=== PATIENT | female | born 1985 | race American Indian/Alaskan Native ===

== ENCOUNTER 2018-02-04 15:39 | Inpatient (IN) | payer MEDICAID ==
[2018-02-04 17:52] LABS: ANION GAP 10.2; CHLORIDE,CL 106 mmol/L (101-111); SODIUM,NA 135 mmol/L (135-145)
[2018-02-04] MEDS ORDERED: ceFAZolin 2 GM in Premix Bag 1 BAG IV ONE (18:02)
[2018-02-04] MEDS ORDERED: ePHEDrine 50 MG/ML SDV IVPUSH PRN (18:02)
[2018-02-04] MEDS ORDERED: Acetaminophen/oxyCODONE 325-5 MG Tab PO PRN (18:02)
[2018-02-04] MEDS ORDERED: Methylergonovine 0.2 MG/1 ML Amp IM PRN (18:02)
[2018-02-04] MEDS ORDERED: Carboprost Tromethamine 250 MCG/1 ML Amp IM ONE (18:02)
[2018-02-04] MEDS ORDERED: Acetaminophen 325 MG Tab PO PRN (18:02)
[2018-02-04] MEDS ORDERED: Sodium Chloride 0.9% 10 ML Syringe FLUSH PRN (18:02)
[2018-02-04] MEDS ORDERED: Misoprostol 400 MCG (4 X 100 MCG TAB) RECTAL PRN (18:02)
[2018-02-04] MEDS ORDERED: diphenhydrAMINE 50 MG/ML SDV IVPUSH PRN (18:02)
[2018-02-04] MEDS ORDERED: Naloxone 2 MG/2 ML Syringe IVPUSH PRN (18:02)
[2018-02-04] MEDS ORDERED: Citric Acid/Sodium Citrate Solution 30 ML Cup PO ONE (18:02)
[2018-02-04] MEDS ORDERED: Tranexamic Acid 1,000 MG in Sodium Chloride 0.9% 100 ML IV PRN ×4 (18:02)
[2018-02-04] MEDS ORDERED: Ondansetron 4 MG/2 ML SDV IV PRN (18:02)
[2018-02-04] MEDS ORDERED: Potassium Chloride 20 MEQ in Premix Bag 1 BAG IV ONE (18:14)
[2018-02-04] MEDS ORDERED: Lactated Ringers 1,000 ML IV SCH ×2 (18:15)
[2018-02-04] MEDS ORDERED: Ketorolac 30 MG/ML SDV IVPUSH ONE (18:15)
[2018-02-04] MEDS ORDERED: Oxytocin/Normal Saline 60 UNIT/1,000 ML BAG ONE (18:24)
[2018-02-04] MEDS ORDERED: Measles, Mumps & Rubella Vaccine 0.5 ML SDV SUBCUT ONE (18:45)
[2018-02-04] MEDS ORDERED: Oxytocin 10 Units/1 ML SDV IV PRN (18:49)
[2018-02-04] MEDS ORDERED: Oxytocin/Normal Saline 30 UNIT/500 ML BAG IV SCH (20:30)
--- NOTE | 2018-02-05 01:45 | HP ---
CHIEF COMPLAINT: "I'm having contractions." HISTORY OF PRESENT ILLNESS: Ms. Sharma is a 32-year-old 6, para 5-0-0- 5 female. Last menstrual period 05/21/2017, EDC 02/25/2018, EGA 37 weeks' gestation. She comes in complaining of increasing force and frequency of contractions and edema in her legs. She denies any vaginal bleeding or leakage of fluid. No nausea, vomiting, or diarrhea. No fever, chills. No hematochezia, hematemesis, hematuria. No dysuria, frequency, or urgency with urination. No leg pain, leg edema, back pain, or severe abdominal pain. She is having pain with her contractions though. PAST MEDICAL HISTORY: Positive for hepatitis C and abnormal Pap smears. No history of diabetes, hypertension, heart disease, seizure disorder, thyroid disorder, thromboembolic disease, blood transfusions. SOCIAL HISTORY: The patient smokes a pack of cigarettes a day. She denies any alcohol use or illicit drug use, but she does have a positive drug screen for methamphetamine and oxycodone today. She lives in [place]. She does have her other children. OBSTETRICAL HISTORY: Normal spontaneous vaginal delivery of a viable male in 2010, weighing 3997 g. On 04/07/2012, delivery of a viable male via vacuum-assisted vaginal delivery at term. On 04/16/2013, primary low transverse section of a viable female , weighing 3365 g. On 05/17/2015, delivery of a viable male , weighing 3799 g via repeat section. On 06/17/2016, delivery of a viable male via repeat section, weighing 3657 g at 38 and 4/7 weeks' gestation. PAST SURGICAL HISTORY: section x3, wisdom teeth extraction, and cholecystectomy. FAMILY HISTORY: Positive for diabetes, lung cancer, and heart failure. REVIEW OF SYSTEMS: All pertinent positive and negative review of systems per HPI. All other systems reviewed are negative. Ten point review of systems discussed with the patient. She has no issues other than what is in the HPI. OBJECTIVE: General: Well-developed, well-nourished female, who is disoriented, I am thinking secondary to her methamphetamine use. Vital Signs: Stable. Afebrile. HEENT: Unremarkable. Neck: Supple without adenopathy. No thyromegaly. Lungs: Clear to auscultation. No wheezing, no rhonchi, and no rales noted. Cardiovascular: Regular rate and rhythm without murmurs. Abdomen: Gravid, nontender. Bowel sounds good. No rigidity, rebound tenderness, peritoneal signs noted. Fundal height 37 cm. heart tones 130s to 140s, reactive strip, category 1 strip. Contractions every 2 to 3 minutes. Back: No CVA tenderness. Genitourinary: Cervix is 3+ cm dilated, 70% effaced, -2 station, vertex presentation. Extremities: No edema, erythema, or tenderness noted. ASSESSMENT: 1. A 37-week intrauterine . 2. Early labor. 3. Previous section x3. 4. History of hepatitis C antibody positive. 5. History of abnormal Pap smears with low-grade squamous intraepithelial lesion. 6. Rubella nonimmune. PLAN: 1. All questions answered. 2. The risks, benefits, complications, side effects of the procedure were discussed with the patient including injury to the bowel, bladder, ureters, blood vessels, and other organs because of her multiple C-sections. 3. Despite this, she still wants to have the procedure done. [facility] /[id number] JEANIE
[2018-02-05] MEDS: Lactated Ringers 1,000 ML IV SCH ×2 (02:15→10:52)
[2018-02-05] MEDS: Ketorolac 30 MG/ML SDV IVPUSH SCH ×3 (02:15→14:08)
[2018-02-05] MEDS: Ferrous Sulfate 325 MG Tab PO SCH ×3 (03:22→21:53)
[2018-02-05] MEDS: Simethicone 80 MG Tab.Chew PO SCH ×5 (03:23→21:55)
[2018-02-05] MEDS ORDERED: Potassium Chloride 100 ML ONE (03:24)
[2018-02-05] MEDS: Potassium Chloride 10 MEQ Tab.ER PO SCH ×2 (08:25→17:38)
[2018-02-05] MEDS: Prenatal Multivitamin with Calcium/Folic Acid/Iron Tab PO SCH (08:26)
[2018-02-05] MEDS: Docusate Sodium 100 MG Cap PO PRN ×2 (08:26→21:53)
--- NOTE | 2018-02-05 10:05 | PCM.PNPP ---
- General Info Date of Service: 02/05/18 (PPD/POD # 1 S/P Repeat LTC/s) Functional Status: Reports: Pain Controlled, Tolerating Diet - Review of Systems General: Reports: No Symptoms HEENT: Reports: No Symptoms Pulmonary: Reports: No Symptoms Cardiovascular: Reports: No Symptoms Gastrointestinal: Reports: No Symptoms Genitourinary: Reports: No Symptoms Musculoskeletal: Reports: No Symptoms Skin: Reports: No Symptoms Neurological: Reports: No Symptoms Psychiatric: Reports: No Symptoms - General Info Date of Service: 02/05/18 (POD/PPD # 1 S/P Repeat LTC/S) - Patient Data Vital Signs - Most Recent: Last Vital Signs Temp 97.7 F 02/05/18 08:47 Pulse 51 L 02/05/18 08:47 Resp 18 02/05/18 08:47 BP 121/71 02/05/18 08:47 Pulse Ox 98 02/05/18 08:47 Weight - Most Recent: 163 lb I&O - Last 24 Hours: Intake & Output 02/04/18 02/05/18 02/05/18 22:59 06:59 14:59 Intake Total 300 1600 Output Total 600 266 Balance -300 1334 Lab Results - Last 24 Hours: Laboratory Results - last 24 hr 02/04/18 02/04/18 02/04/18 Range/Units 16:10 16:10 17:20 WBC 9.1 (5.0-10.0) 10^3/uL RBC 3.93 L (4.2-5.4) 10^6/uL Hgb 10.1 L (12.0-16.0) g/dL Hct 31.7 L (37.0-47.0) % MCV 80.7 (80-100) fL MCH 25.7 L (27.0-34.0) pg MCHC 31.9 L (33.0-35.0) g/dL Plt Count 243 (150-450) 10^3/uL Sodium (135-145) mmol/L Potassium (3.6-5.0) mmol/L Chloride (101-111) mmol/L Carbon Dioxide (21.0-31.0) mmol/L Anion Gap BUN (7-18) mg/dL Creatinine (0.6-1.3) mg/dL Est Cr Clr Drug Dosing mL/min Estimated GFR (MDRD) BUN/Creatinine Ratio Glucose (74-105) mg/dL Calcium (8.4-10.2) mg/dl Total Bilirubin (0.2-1.0) mg/dL AST (10-42) IU/L ALT (10-60) IU/L Alkaline Phosphatase (42-121) IU/L Total Protein (6.7-8.2) g/dl Albumin (3.2-5.5) g/dl Globulin Albumin/Globulin Ratio Urine Color Yellow (YELLOW) Urine Appearance Clear (CLEAR) Urine pH 6.5 (5.0-9.0) Ur Specific [place] 1.015 (1.005-1.030) Urine Protein Negative (NEGATIVE) Urine Glucose (UA) Negative (NEGATIVE) Urine Ketones Negative (NEGATIVE) Urine Occult Blood Small H (NEGATIVE) Urine Nitrite Negative (NEGATIVE) Urine Bilirubin Negative (NEGATIVE) Urine Urobilinogen 1.0 (0.2-1.0) mg/dL Ur Leukocyte Esterase Small H (NEGATIVE) Urine RBC 0-5 /HPF Urine WBC 5-10 H (0-5/HPF) /HPF Ur Epithelial Cells Many H /HPF Urine Bacteria Moderate H (0-FEW/HPF) /HPF Urine Opiates Screen Negative (NEGATIVE) Ur Oxycodone Screen Positive H (NEGATIVE) Urine Methadone Screen Negative (NEGATIVE) Ur Barbiturates Screen Negative (NEGATIVE) U Tricyclic Antidepress Negative (NEGATIVE) Ur Phencyclidine Scrn Negative (NEGATIVE) Ur Amphetamine Screen Positive H (NEGATIVE) U Methamphetamines Scrn Positive H (NEGATIVE) Urine MDMA Screen Negative (NEGATIVE) U Benzodiazepines Scrn Negative (NEGATIVE) Urine Cocaine Screen Negative (NEGATIVE) U Marijuana (THC) Screen Negative (NEGATIVE) Blood Type Gel Antibody Screen 02/04/18 02/04/18 02/05/18 Range/Units 17:20 17:20 06:12 WBC 8.6 (5.0-10.0) 10^3/uL RBC 3.55 L (4.2-5.4) 10^6/uL Hgb 9.1 L (12.0-16.0) g/dL Hct 29.2 L (37.0-47.0) % MCV 82.3 (80-100) fL MCH 25.6 L (27.0-34.0) pg MCHC 31.2 L (33.0-35.0) g/dL Plt Count 190 (150-450) 10^3/uL Sodium 135 (135-145) mmol/L Potassium 3.2 L (3.6-5.0) mmol/L Chloride 106 (101-111) mmol/L Carbon Dioxide 22.0 (21.0-31.0) mmol/L Anion Gap 10.2 BUN 7 (7-18) mg/dL Creatinine 0.6 (0.6-1.3) mg/dL Est Cr Clr Drug Dosing 123.37 mL/min Estimated GFR (MDRD) > 60 BUN/Creatinine Ratio 11.66 Glucose 88 (74-105) mg/dL Calcium 8.8 (8.4-10.2) mg/dl Total Bilirubin 0.6 (0.2-1.0) mg/dL AST 17 (10-42) IU/L ALT 11 (10-60) IU/L Alkaline Phosphatase 185 H (42-121) IU/L Total Protein 5.9 L (6.7-8.2) g/dl Albumin 2.6 L (3.2-5.5) g/dl Globulin 3.3 Albumin/Globulin Ratio 0.79 Urine Color (YELLOW) Urine Appearance (CLEAR) Urine pH (5.0-9.0) Ur Specific [place] (1.005-1.030) Urine Protein (NEGATIVE) Urine Glucose (UA) (NEGATIVE) Urine Ketones (NEGATIVE) Urine Occult Blood (NEGATIVE) Urine Nitrite (NEGATIVE) Urine Bilirubin (NEGATIVE) Urine Urobilinogen (0.2-1.0) mg/dL Ur Leukocyte Esterase (NEGATIVE) Urine RBC /HPF Urine WBC (0-5/HPF) /HPF Ur Epithelial Cells /HPF Urine Bacteria (0-FEW/HPF) /HPF Urine Opiates Screen (NEGATIVE) Ur Oxycodone Screen (NEGATIVE) Urine Methadone Screen (NEGATIVE) Ur Barbiturates Screen (NEGATIVE) U Tricyclic Antidepress (NEGATIVE) Ur Phencyclidine Scrn (NEGATIVE) Ur Amphetamine Screen (NEGATIVE) U Methamphetamines Scrn (NEGATIVE) Urine MDMA Screen (NEGATIVE) U Benzodiazepines Scrn (NEGATIVE) Urine Cocaine Screen (NEGATIVE) U Marijuana (THC) Screen (NEGATIVE) Blood Type B POSITIVE Gel Antibody Screen Negative Med Orders - Current: Current Medications Acetaminophen (Tylenol) 650 mg PO Q6H PRN PRN Reason: mild pain or fever Diphenhydramine HCl (Benadryl) 25 mg IVPUSH Q6H PRN PRN Reason: Itching or Nausea Docusate Sodium (Colace) 100 mg PO Q12H PRN PRN Reason: Constipation Last Admin: 02/05/18 08:26 Dose: 100 mg Ephedrine Sulfate (Ephedrine Sulfate) 5 mg IVPUSH SEECOMMENT PRN PRN Reason: Other Ferrous Sulfate (Ferrous Sulfate) 325 mg PO BID [facility] Last Admin: 02/05/18 08:25 Dose: 325 mg Tranexamic Acid 1,000 mg/ (Sodium Chloride) 110 mls @ 660 mls/hr IV ONETIME PRN PRN Reason: Bleeding Tranexamic Acid 1,000 mg/ (Sodium Chloride) 110 mls @ 660 mls/hr IV ONETIME PRN PRN Reason: Bleeding Lactated Ringer's (Ringers, Lactated) 1,000 mls @ 125 mls/hr IV ASDIRECTED [facility] Last Admin: 02/05/18 02:15 Dose: 125 mls/hr Lactated Ringer's (Ringers, Lactated) 1,000 mls @ 500 mls/hr IV .BOLUS [facility] Last Admin: 02/04/18 18:25 Dose: 500 mls/hr Lactated Ringer's (Ringers, Lactated) 1,000 mls @ 125 mls/hr IV ASDIRECTED [facility] Oxytocin/Sodium Chloride (Pitocin In Ns 30 Unit/500 Ml) 30 unit in 500 mls @ 2 mls/hr IV TITRATE [facility]; Protocol Last Titration: 02/05/18 02:13 Dose: Infused Ibuprofen (Motrin) 800 mg PO Q8H PRN PRN Reason: mild pain or fever Ketorolac Tromethamine (Toradol) 15 mg IVPUSH Q6H [facility] Stop: 02/05/18 12:01 Last Admin: 02/05/18 08:28 Dose: 15 mg Methylergonovine Maleate (Methergine) 0.2 mg IM ONETIME PRN PRN Reason: Excessive Vaginal Bleeding Misoprostol (Cytotec) 800 mcg RECTAL ASDIRECTED PRN PRN Reason: Excessive bleeding Naloxone HCl (Narcan) 0.1 mg IVPUSH SEECOMMENT PRN PRN Reason: Respiratory Depression Ondansetron HCl (Zofran) 4 mg IV Q4H PRN PRN Reason: Nausea/Vomiting Oxycodone/Acetaminophen (Percocet 325-5 Mg) 1 tab PO Q4H PRN PRN Reason: Pain (moderate 4-6) Oxycodone/Acetaminophen (Percocet 325-5 Mg) 2 tab PO Q4H PRN PRN Reason: Pain (moderate 4-6) Oxytocin (Pitocin) 0 unit IV ONETIME PRN; Protocol PRN Reason: Potassium Chloride (Klor-Con 10) 20 meq PO BIDMEALS [facility] Last Admin: 02/05/18 08:25 Dose: 20 meq Prenat Multivit/S[employer]/Iron/Folic Ac ( Plus Iron) 1 each PO DAILY [facility] Last Admin: 02/05/18 08:26 Dose: 1 each Simethicone (Simethicone) 160 mg PO QID [facility] Last Admin: 02/05/18 08:25 Dose: 160 mg Sodium Chloride (Saline Flush) 10 ml FLUSH ASDIRECTED PRN PRN Reason: Keep Vein Open Discontinued Medications Carboprost Tromethamine (Hemabate Ds) 250 mcg IM ONETIME ONE Stop: 02/04/18 18:03 Last Admin: 02/05/18 03:23 Dose: Not Given Citric Acid/Sodium Citrate (Bicitra Solution) 30 ml PO ONETIME ONE Stop: 02/04/18 18:03 Last Admin: 02/04/18 18:43 Dose: 30 ml Cefazolin Sodium/Dextrose 2 gm (/ Premix) 50 mls @ 100 mls/hr IV ONETIME ONE Stop: 02/04/18 18:31 Last Admin: 02/04/18 18:55 Dose: 100 mls/hr Potassium Chloride 20 meq/ (Premix) 100 mls @ 50 mls/hr IV ONETIME ONE Stop: 02/04/18 20:13 Last Admin: 02/05/18 03:30 Dose: 50 mls/hr Oxytocin/Sodium Chloride (Pitocin In Ns 30 Unit/500 Ml) Confirm Administered Dose 60 unit in 1,000 mls @ as directed .ROUTE .STK-MED ONE Stop: 02/04/18 18:25 Last Admin: 02/04/18 19:55 Dose: 125 mls/hr Potassium Chloride (Kcl 20 Meq In Water 100 Ml) Confirm Administered Dose 100 mls @ as directed .ROUTE .STK-MED ONE Stop: 02/05/18 03:25 Last Admin: 02/05/18 03:41 Dose: Not Given Ketorolac Tromethamine (Toradol) 30 mg IVPUSH ONETIME ONE Stop: 02/04/18 18:16 Last Admin: 02/05/18 03:22 Dose: Not Given - Interaction Infant Disposition, : Not Applicable Interaction: Other (see below) ( in [place] at [place]) Support Person: Other (see below) - Recovery Exam Fundal Tone: Firm Fundal Level: 2 Fingerbreadths Below Umbilicus Fundal Placement: Midline Lochia Amount: Small Lochia Color: Rubra/Red Perineum Description: Intact, Minimal Bruising/Swelling Episiotomy/Laceration: None Bladder Status: Nonpalpable, Indwelling Catheter in Place Urinary Elimination: Indwelling Catheter - Exam General: Alert, Cooperative, No Acute Distress, Lethargic HEENT: Pupils Equal, Pupils Reactive, EOMI, Mucous Membr. Moist/[place] Neck: Supple Lungs: Clear to Auscultation, Normal Respiratory Effort Cardiovascular: Regular Rate, Regular Rhythm GI/Abdominal Exam: Normal Bowel Sounds, Soft, Non-Tender, No Organomegaly, No Distention Extremities: Normal Inspection, Normal Range of Motion, Non-Tender, Normal Capillary Refill, Pedal Edema Skin: Warm, Dry, Intact Wound/Incisions: Healing Well, Dressing Dry and Intact, No Drainage Neurological: No New Focal Deficit Psy/Mental Status: Alert, Normal Affect, Normal Mood - Problem List Review Problem List Initiated/Reviewed/Updated: Yes - My Orders Last 24 Hours: My Active Orders 02/04/18 16:13 CULTURE GROUP B STREP [RM] Routine 02/04/18 18:02 Acetaminophen [Tylenol] 650 mg PO Q6H PRN Acetaminophen/oxyCODONE [Percocet 325-5 MG] 1 tab PO Q4H PRN Acetaminophen/oxyCODONE [Percocet 325-5 MG] 2 tab PO Q4H PRN Docusate Sodium [Colace] 100 mg PO Q12H PRN Methylergonovine [Methergine] 0.2 mg IM ONETIME PRN Naloxone [Narcan] 0.1 mg IVPUSH SEECOMMENT PRN Ondansetron [Zofran] 4 mg IV Q4H PRN Sodium Chloride 0.9% [Saline Flush] 10 ml FLUSH ASDIRECTED PRN Tranexamic Acid [Cyklokapron] 1,000 mg Sodium Chloride 0.9% [Normal Saline] 100 ml IV ONETIME Tranexamic Acid [Cyklokapron] 1,000 mg Sodium Chloride 0.9% [Normal Saline] 100 ml IV ONETIME diphenhydrAMINE [Benadryl] 25 mg IVPUSH Q6H PRN ePHEDrine [ePHEDrine Sulfate] 5 mg IVPUSH SEECOMMENT PRN miSOPROStol [Cytotec] 800 mcg RECTAL ASDIRECTED PRN Resuscitation Status Routine 02/04/18 18:03 Patient Status [ADT] Routine Bedrest [RC] ASDIRECTED Communication Order [RC] PER UNIT ROUTINE Communication Order [RC] Per Unit Routine Notify Provider Vital Signs OB [RC] ASDIRECTED RT Incentive Spirometry [RC] Q2HWA Urinary Catheter Removal [RC] Per Unit Routine Vital Signs [RC] 00,04,08,12,16,20 Antiembolic Hose [OM.PC] Per Unit Routine Assess Lochia [WOMSER] Per Unit Routine Assess Uterine Involution [WOMSER] Per Unit Routine Breast Pump [WOMSER] Per Unit Routine Peripheral IV Insertion Adult [OM.PC] Routine Schedule Procedure [COMM] Per Unit Routine Sequential Compression Device [OM.PC] Per Unit Routine 02/04/18 18:07 Intake and Output [RC] Q8H 02/04/18 18:08 Notify Provider Intake and Out [RC] ASDIRECTED 02/04/18 18:15 Lactated Ringers [Ringers, Lactated] 1,000 ml IV .BOLUS Lactated Ringers [Ringers, Lactated] 1,000 ml IV ASDIRECTED Lactated Ringers [Ringers, Lactated] 1,000 ml IV ASDIRECTED 02/04/18 18:45 Vaccines to be Administered [RC] PER UNIT ROUTINE 02/04/18 18:49 Oxytocin [Pitocin] See Protocol IV ONETIME PRN 02/04/18 20:30 Oxytocin/Normal Saline [Pitocin in NS 30 UNIT/500 ML] 30 unit in 500 ml IV TITRATE 02/04/18 21:00 Ferrous Sulfate 325 mg PO BID Simethicone 160 mg PO QID 02/04/18 Dinner Nothing Per Oral Diet [DIET] 02/04/18 Lunch Nothing Per Oral Diet [DIET] 02/05/18 00:00 Ketorolac [Toradol] 15 mg IVPUSH Q6H 02/05/18 08:00 Potassium Chloride [Klor-Con 10] 20 meq PO BIDMEALS 02/05/18 09:00 Vit with Ca/FA/Iron [ Plus Iron] 1 each PO DAILY 02/05/18 20:00 Ibuprofen [Motrin] 800 mg PO Q8H PRN - Assessment Assessment:: POD/PPD # 1 S/P Repeat LTC/S Chronic anemia of acute anemia secondary to blood loss - Plan Plan:: Continue present care Will remove Ellis catheter Will ambulate PNV and Ferrous sulfate
[2018-02-05] MEDS ORDERED: Diphtheria,Pertussis(Acell),Tetanus Vaccine 0.5 ML SDV IM ONE (13:49)
[2018-02-05] MEDS: Acetaminophen/oxyCODONE 325-5 MG Tab PO PRN ×2 (17:44→21:54)
[2018-02-05] MEDS: Ibuprofen 800 MG Tab PO PRN (21:54)
[2018-02-06] MEDS: Acetaminophen/oxyCODONE 325-5 MG Tab PO PRN ×6 (01:54→22:05)
--- NOTE | 2018-02-06 04:01 | PCM.PNPP ---
- General Info Date of Service: 02/06/18 (PPD/POD # 2 S/P Repeat LTC/S) Functional Status: Reports: Pain Controlled, Tolerating Diet, Ambulating - Review of Systems General: Reports: No Symptoms HEENT: Reports: No Symptoms Pulmonary: Reports: No Symptoms Cardiovascular: Reports: No Symptoms Gastrointestinal: Reports: No Symptoms Genitourinary: Reports: No Symptoms Musculoskeletal: Reports: No Symptoms Skin: Reports: No Symptoms Neurological: Reports: No Symptoms Psychiatric: Reports: No Symptoms - General Info Date of Service: 02/06/18 (PPD/POD # 2 S/P Repeat LTC/S) - Patient Data Vital Signs - Most Recent: Last Vital Signs Temp 98.3 F 02/05/18 16:39 Pulse 61 02/05/18 16:39 Resp 18 02/05/18 16:39 BP 101/56 L 02/05/18 16:39 Pulse Ox 99 02/05/18 16:39 Weight - Most Recent: 163 lb I&O - Last 24 Hours: Intake & Output 02/05/18 02/05/18 02/06/18 14:59 22:59 06:59 Intake Total 2864 240 Output Total 1350 2000 Balance 1514 -1760 Lab Results - Last 24 Hours: Laboratory Results - last 24 hr 02/05/18 Range/Units 06:12 WBC 8.6 (5.0-10.0) 10^3/uL RBC 3.55 L (4.2-5.4) 10^6/uL Hgb 9.1 L (12.0-16.0) g/dL Hct 29.2 L (37.0-47.0) % MCV 82.3 (80-100) fL MCH 25.6 L (27.0-34.0) pg MCHC 31.2 L (33.0-35.0) g/dL Plt Count 190 (150-450) 10^3/uL Med Orders - Current: Current Medications Acetaminophen (Tylenol) 650 mg PO Q6H PRN PRN Reason: mild pain or fever Diphenhydramine HCl (Benadryl) 25 mg IVPUSH Q6H PRN PRN Reason: Itching or Nausea Docusate Sodium (Colace) 100 mg PO Q12H PRN PRN Reason: Constipation Last Admin: 08/12/18 21:53 Dose: 100 mg Ephedrine Sulfate (Ephedrine Sulfate) 5 mg IVPUSH SEECOMMENT PRN PRN Reason: Other Ferrous Sulfate (Ferrous Sulfate) 325 mg PO BID [facility] Last Admin: 02/05/18 21:53 Dose: 325 mg Tranexamic Acid 1,000 mg/ (Sodium Chloride) 110 mls @ 660 mls/hr IV ONETIME PRN PRN Reason: Bleeding Tranexamic Acid 1,000 mg/ (Sodium Chloride) 110 mls @ 660 mls/hr IV ONETIME PRN PRN Reason: Bleeding Lactated Ringer's (Ringers, Lactated) 1,000 mls @ 125 mls/hr IV ASDIRECTED [facility] Last Admin: 02/05/18 10:52 Dose: 125 mls/hr Lactated Ringer's (Ringers, Lactated) 1,000 mls @ 500 mls/hr IV .BOLUS [facility] Last Admin: 02/04/18 18:25 Dose: 500 mls/hr Lactated Ringer's (Ringers, Lactated) 1,000 mls @ 125 mls/hr IV ASDIRECTED [facility] Oxytocin/Sodium Chloride (Pitocin In Ns 30 Unit/500 Ml) 30 unit in 500 mls @ 2 mls/hr IV TITRATE [facility]; Protocol Last Titration: 02/05/18 02:13 Dose: Infused Ibuprofen (Motrin) 800 mg PO Q8H PRN PRN Reason: mild pain or fever Last Admin: 02/05/18 21:54 Dose: 800 mg Methylergonovine Maleate (Methergine) 0.2 mg IM ONETIME PRN PRN Reason: Excessive Vaginal Bleeding Misoprostol (Cytotec) 800 mcg RECTAL ASDIRECTED PRN PRN Reason: Excessive bleeding Naloxone HCl (Narcan) 0.1 mg IVPUSH SEECOMMENT PRN PRN Reason: Respiratory Depression Ondansetron HCl (Zofran) 4 mg IV Q4H PRN PRN Reason: Nausea/Vomiting Oxycodone/Acetaminophen (Percocet 325-5 Mg) 1 tab PO Q4H PRN PRN Reason: Pain (moderate 4-6) Oxycodone/Acetaminophen (Percocet 325-5 Mg) 2 tab PO Q4H PRN PRN Reason: Pain (moderate 4-6) Last Admin: 02/06/18 01:54 Dose: 2 tab Oxytocin (Pitocin) 0 unit IV ONETIME PRN; Protocol PRN Reason: Potassium Chloride (Klor-Con 10) 20 meq PO BIDMEALS [facility] Last Admin: 02/05/18 17:38 Dose: 20 meq Prenat Multivit/[place]/Iron/Folic Ac ( Plus Iron) 1 each PO DAILY [facility] Last Admin: 02/05/18 08:26 Dose: 1 each Simethicone (Simethicone) 160 mg PO QID [facility] Last Admin: 02/05/18 21:55 Dose: 160 mg Sodium Chloride (Saline Flush) 10 ml FLUSH ASDIRECTED PRN PRN Reason: Keep Vein Open Discontinued Medications Carboprost Tromethamine (Hemabate Ds) 250 mcg IM ONETIME ONE Stop: 02/04/18 18:03 Last Admin: 02/05/18 03:23 Dose: Not Given Citric Acid/Sodium Citrate (Bicitra Solution) 30 ml PO ONETIME ONE Stop: 02/04/18 18:03 Last Admin: 02/04/18 18:43 Dose: 30 ml Diphtheria/Tetanus/Acell Pertussis (Adacel) 0.5 ml IM .ONCE ONE Stop: 02/05/18 13:50 Last Admin: 02/05/18 14:08 Dose: 0.5 ml Cefazolin Sodium/Dextrose 2 gm (/ Premix) 50 mls @ 100 mls/hr IV ONETIME ONE Stop: 02/04/18 18:31 Last Admin: 02/04/18 18:55 Dose: 100 mls/hr Potassium Chloride 20 meq/ (Premix) 100 mls @ 50 mls/hr IV ONETIME ONE Stop: 02/04/18 20:13 Last Admin: 02/05/18 03:30 Dose: 50 mls/hr Oxytocin/Sodium Chloride (Pitocin In Ns 30 Unit/500 Ml) Confirm Administered Dose 60 unit in 1,000 mls @ as directed .ROUTE .STK-MED ONE Stop: 02/04/18 18:25 Last Admin: 02/04/18 19:55 Dose: 125 mls/hr Potassium Chloride (Kcl 20 Meq In Water 100 Ml) Confirm Administered Dose 100 mls @ as directed .ROUTE .STK-MED ONE Stop: 02/05/18 03:25 Last Admin: 02/05/18 03:41 Dose: Not Given Ketorolac Tromethamine (Toradol) 30 mg IVPUSH ONETIME ONE Stop: 02/04/18 18:16 Last Admin: 02/05/18 03:22 Dose: Not Given Ketorolac Tromethamine (Toradol) 15 mg IVPUSH Q6H [facility] Stop: 02/05/18 12:01 Last Admin: 02/05/18 14:08 Dose: 15 mg - Infant Interaction Infant Disposition, : Not Applicable Interaction: Other (see below) ( in [place] at [place]) Support Person: Other (see below) - Recovery Exam Fundal Tone: Firm Fundal Level: 2 Fingerbreadths Below Umbilicus Fundal Placement: Midline Lochia Amount: Small Lochia Color: Rubra/Red Perineum Description: Intact, Minimal Bruising/Swelling Episiotomy/Laceration: None Bladder Status: Nonpalpable, Voiding Urinary Elimination: Voided - Exam General: Alert, Oriented, Cooperative, No Acute Distress HEENT: Pupils Equal, Pupils Reactive, EOMI Neck: Supple Lungs: Clear to Auscultation, Normal Respiratory Effort Cardiovascular: Regular Rate, Regular Rhythm GI/Abdominal Exam: Normal Bowel Sounds, Soft, Non-Tender, No Distention Extremities: Normal Inspection, Normal Range of Motion, Non-Tender, Pedal Edema Skin: Warm, Dry, Intact Wound/Incisions: Healing Well, Dressing Dry and Intact, No Drainage Neurological: No New Focal Deficit Psy/Mental Status: Alert, Normal Affect, Normal Mood - Problem List Review Problem List Initiated/Reviewed/Updated: Yes - My Orders Last 24 Hours: My Active Orders 02/05/18 08:00 Potassium Chloride [Klor-Con 10] 20 meq PO BIDMEALS 02/05/18 09:00 Vit with Ca/FA/Iron [ Plus Iron] 1 each PO DAILY 02/05/18 20:00 Ibuprofen [Motrin] 800 mg PO Q8H PRN 02/06/18 03:51 Consult to Technology Coordinator [CONS] Routine 02/06/18 03:53 Ready for Discharge [RC] PER UNIT ROUTINE - Assessment Assessment:: POD/PPD # 2 S/P Repeat LTC/S Chronic anemia of acute anemia secondary to blood loss - Plan Plan:: Consider discharge later today rn social services to see patient today Increase ambulation Patient desires to see in [place].
--- NOTE | 2018-02-06 05:29 | DISCH ---
INDICATION FOR ADMISSION: Ms. Sharma is a 32-year-old, 6, para 5-0-0-5 female at 37 weeks' gestation, who reported to Labor and Delivery with increasing force and frequency of contractions and edema in her legs. On admission, she was noted to be 2 cm dilated, gracie every 2 to 3 minutes and her cervix did change to 3+ cm dilated, 70% effaced, -2 station, vertex presentation, so we called for section since she has had 3 previous section. She tolerated the procedure quite well. She went from the operating room to Recovery and then to the OB floor. She tolerated the rest of her hospital stay quite well. She is afebrile. Vital signs are stable. She tolerated her diet well. She ambulated. On admission, she was noted to have a positive urine drug screen for oxycodone and methamphetamine, and she definitely was obtunded and "very high" on admission and for the next 24 hours. She had minimal lochia. Her incision did well with no erythema or drainage noted. She did get her Ellis catheter out on postop day #1 and she was able to void. She ambulated well. She tolerated her diet well. She was discharged to home on postop day #2. LABORATORY AND DIAGNOSTIC STUDIES: On 02/04/2018; WBC 9.1, hemoglobin 10.1, hematocrit 31.7, platelet count 243,000. CMP was normal. Urine protein was negative. Urine toxicology screen showed positive oxycodone, positive methamphetamine. On 02/05/2018; WBC 8.6, hemoglobin 9.1, hematocrit 29.2, platelet count 190,000. DISCHARGE INSTRUCTIONS: 1. Discharged to home. 2. Follow up with Dr. Cuevas in the office at her 6-week checkup or sooner if problems develop. 3. The patient going to see in [place] at [place]. 4. The patient to bring back infant to see Dr. Cuevas after the baby's discharge. 5. No douching, tampons, or intercourse for 6 weeks. 6. Ibuprofen 800 mg one tablet t.i.d. p.r.n. for pain. 7. Percocet one tablet q.8 hours p.r.n. for pain. 8. Discharge instructions including activity, followup, medications, diet, and wound care were discussed with the patient. She understands these and is willing to comply with these. 9. Designer Architect consult was placed and they will see the patient before discharge. DISCHARGE DIAGNOSES: 1. 37-week intrauterine . 2. Early labor. 3. Previous section x3. 4. History of hepatitis C antibody positive. 5. History of abnormal Pap smears with low-grade squamous intraepithelial lesion. 6. Rubella nonimmune. 7. Repeat low transverse section via Pfannenstiel skin incision. 8. Delivery of a viable male infant weighing 6 pounds 4 ounces with Apgars of 8 at one minute, 9 at five minutes. 9. Spinal anesthesia with Duramorph. [facility] /[id number]
[2018-02-06] MEDS: Ibuprofen 800 MG Tab PO PRN ×2 (06:22→14:21)
--- NOTE | 2018-02-06 07:11 | OR ---
DATE: 02/04/2018 PREOPERATIVE DIAGNOSES: 1. A 37-week intrauterine . 2. Early labor. 3. Previous section x3. 4. Thin lower uterine segment history. 5. Hepatitis C positive. 6. Positive methamphetamine and oxycodone in urine drug screen today. 7. Late care. 8. Rubella nonimmune. POSTOPERATIVE DIAGNOSES: 1. A 37-week intrauterine . 2. Early labor. 3. Previous section x3. 4. Thin lower uterine segment history. 5. Hepatitis C positive. 6. Positive methamphetamine and oxycodone in urine drug screen today. 7. Late care. 8. Rubella nonimmune. 9. Delivery of a viable male infant, weighing , scores 8 at 1 minute, 9 at 5 minutes. PROCEDURE PERFORMED: Repeat low transverse section via Pfannenstiel skin incision. CLOTHES PRESSER: Mere Fernandez MD COMPLICATIONS: None. FLUIDS: Crystalloids with LR. DRAINS: Ellis catheter. PATHOLOGY: None. ANESTHESIA: Spinal anesthesia with Duramorph. COMPLICATIONS: None. ESTIMATED BLOOD LOSS: 500 mL. FINDINGS: 1. Normal uterus, tubes, and ovaries. 2. Pelvic adhesions with bladder adhered close to the lower uterine segment and previous incision site. Viable male infant, weighing , scores of 8 at 1 minute, 9 at 5 minutes. DESCRIPTION OF PROCEDURE: The patient was taken down the operating room with an IV running. She was placed supine on the operating room table. After adequate spinal anesthesia was obtained, she was prepped and draped in the usual sterile fashion in the dorsal supine position with a leftward tilt. A Pfannenstiel skin incision was made over the previous scar. This was carried down to the fascia. Fascia was nicked in midline, extended laterally. Fascia was taken off the rectus muscles, superiorly and inferiorly. Rectus muscles were in the midline. The peritoneal cavity was entered. Eric O-Ring retractor was placed. A transverse incision in the uterus was then accomplished. This was extended laterally. The 's head was then delivered. The nose and mouth were suctioned. The rest of the was then delivered. The cord was clamped and cut. The infant was handed off to the nurse in attendance. Cord blood was obtained. The placenta was then delivered by simple expression intact. The uterus was cleared of all clots and debris. The uterus was then reapproximated with a double-layer closure of #1 Vicryl suture in a running, locked fashion. Excellent hemostasis was noted. The abdomen and pelvis were irrigated with 2 L of sterile saline. Excellent hemostasis was noted. The rectus muscles and peritoneum were reapproximated with 0 chromic suture in a running, nonlocked fashion. Excellent hemostasis was noted. The fascia was then reapproximated with 0 PDS suture in a running, nonlocked fashion. Excellent hemostasis was noted. Subcutaneous tissue was irrigated with warm saline and dry. The skin was then reapproximated subcuticularly with 3-0 Monocryl suture. Once the skin was reapproximated, Dermabond was placed as the dressing. The patient tolerated the procedure quite well. All sponge, needle, instrument counts were correct by the nurse in attendance x2. There was clear yellow urine noted to emanate from the Ellis catheter throughout the entire procedure. The patient received 2 g of Ancef IV before the procedure. The patient received 20 units of Pitocin after delivery of the placenta. The patient was taken to PACU awake in stable condition. The infant was taken to the nursery. [facility] /[id number]
[2018-02-06] MEDS: Docusate Sodium 100 MG Cap PO PRN ×2 (08:09→22:05)
[2018-02-06] MEDS: Prenatal Multivitamin with Calcium/Folic Acid/Iron Tab PO SCH (08:09)
[2018-02-06] MEDS: Ferrous Sulfate 325 MG Tab PO SCH ×2 (08:09→22:05)
[2018-02-06] MEDS: Potassium Chloride 10 MEQ Tab.ER PO SCH ×2 (09:45→17:48)
[2018-02-06] MEDS: Simethicone 80 MG Tab.Chew PO SCH ×5 (10:04→22:05)
[2018-02-07] MEDS: Ibuprofen 800 MG Tab PO PRN ×2 (00:11→09:55)
[2018-02-07] MEDS: Acetaminophen/oxyCODONE 325-5 MG Tab PO PRN ×2 (05:43→09:55)
[2018-02-07 06:48] LABS: CHLORIDE,CL 105 mmol/L (101-111); SODIUM,NA 137 mmol/L (135-145)
--- NOTE | 2018-02-07 08:48 | PN ---
DATE: 02/06/2018 SUBJECTIVE: The patient is tolerating p.o., ambulating, urinating, passing flatus. Help Desk Rep have not come to see the patient yet. There were concerns with the patient not being able to ambulate today. Dr. Mcleod evaluated earlier for potential discharge. However, because of decreased ambulation, concerns with aids social worker, and history of hypokalemia, did discuss with patient proceeding to keep her another day and following closely. She understands and agrees with this treatment plan. OBJECTIVE: Vital Signs: Temperature 97.8, heart rate 64, blood pressure 119/63, respiratory rate 16. Lungs: Clear to auscultation. Heart: S1 and S2. Regular rate and rhythm. Pelvic: Firm uterus -2 below umbilicus. Incision with Dermabond appears to be intact. Extremities: No peripheral edema. Deep tendon reflexes 2+ and symmetric in bilateral lower extremities. LABORATORY DATA: White cell count 8.6, hemoglobin 9.1, and platelets 190 yesterday. Initial potassium on 02/04/2018, was 3.2. We will repeat one tomorrow. She also has a positive drug screen on admission for oxycodone, methamphetamines, and amphetamines. ASSESSMENT AND PLAN: 1. Postop day #2 for repeat low transverse . 2. Hypokalemia, we will recheck labs tomorrow. She has been given some potassium. Please see orders and previous notes in regard to this. I did discuss with the patient proceeding most likely with discharge at 1:00 p.m. tomorrow to make sure she is doing well. We will repeat labs in the morning and re-evaluate her then. [facility] /[id number]
[2018-02-07] MEDS: Ferrous Sulfate 325 MG Tab PO SCH (09:55)
[2018-02-07] MEDS: Docusate Sodium 100 MG Cap PO PRN (09:55)
[2018-02-07] MEDS: Prenatal Multivitamin with Calcium/Folic Acid/Iron Tab PO SCH (09:55)
[2018-02-07] MEDS: Simethicone 80 MG Tab.Chew PO SCH (09:56)
[2018-02-07] MEDS: Potassium Chloride 10 MEQ Tab.ER PO SCH (10:00)
--- NOTE | 2018-02-07 11:48 | DISCH ---
ADMITTING DIAGNOSES: 1. Intrauterine at 37 weeks. 2. Contractions with cervical change. 3. Previous section x3. 4. Previous thin lower uterine segment with previous delivery. 5. Positive urine drug screening for oxycodone, methamphetamine, and amphetamine upon admission. 6. Hypokalemia; potassium of 3.2. 7. G6, P-5-0-0-5. DISCHARGE DIAGNOSES: 1. Intrauterine at 37 weeks - delivered. 2. Contractions with cervical change. 3. Previous section x3. 4. Previous thin lower uterine segment with previous delivery. 5. Positive urine drug screening for oxycodone, methamphetamine, and amphetamine upon admission. 6. Hypokalemia; potassium of 3.2 - resolved with discharge labs revealing a potassium of 4.0. 7. G6, P-5-0-0-5. 8. Anemia of acute blood loss. Hemoglobin dropping from 10.1 predelivery to 9.1 postdelivery. HISTORY OF PRESENT ILLNESS: Please see H and P. HOSPITAL COURSE: The patient was admitted on the above date with the above diagnoses, followed closely, had contractions with cervical change, and due to her history, she underwent a repeat low-transverse . Please see operative note and Dr. Mcleod' notes in regard to this. On postop day #2, there was a plan for discharge but the patient was having issues with ambulating and with concerns with her continued hypokalemia, she was kept another night. Please refer to discharge plans per Dr. Mcleod as well as below. DISCHARGE EVALUATION: Vital Signs: Temperature 97.8, heart rate 69, blood pressure 115/55, and respiratory rate 18. General: The patient is tolerating p.o.'s, ambulating, urinating, passing flatus, and requesting discharge. Lungs: Clear to auscultation bilaterally. Heart: S1 and S2. Regular rate and rhythm. Abdomen: Firm uterus -2 below umbilicus. Extremities: LISA hoses are on. Dermabond-type incision is closed and dry. CONDITION ON DISCHARGE COMPARED TO CONDITION ON ADMISSION: Improved. DISCHARGE INSTRUCTIONS: 1. Diet as tolerated. 2. Activity: No lifting more than 20 pounds. No sit-ups, straining, and pelvic rest for the next 6 weeks with immediate return to fertility discussed with the patient. 3. Reasons to return or go to the emergency room discussed with the patient in detail including, but not limited to, temperature greater than 100.4, foul- smelling discharge, red hot tender breasts or increased vaginal bleeding, or increasing pain, drainage, or redness around incision. DISCHARGE MEDICATIONS: 1. [id number] Tylenol or ibuprofen for pain. 2. Iron sulfate 325 b.i.d. 3. Colace 100 mg b.i.d. p.r.n. FOLLOWUP: On 02/16/2018 for followup in regard to her incision. Please see discharge plan for further details as well. [facility] /[id number]
[2018-02-07] MEDS ORDERED: Bupivacaine 0.75%/D5W 2 ML Amp INJECT ONE (15:02)
[2018-02-07] MEDS ORDERED: Ketorolac 30 MG/ML SDV IVPUSH ONE (15:02)
[2018-02-07] MEDS ORDERED: Morphine PF 1 MG/ML Amp ITHECAL ONE (15:02)
[2018-02-07 17:31] VITALS: BP 122/98
== END 2018-02-07 12:10 | disposition home or self-care (01) | DRG 765 ==
LOC: DL.OBCHECK 15:39 → DL.MS 17:59 → OBSVTOIN 19:15
PROVIDERS: ADMIT Obstetrics & Gynecology; ATTEND Obstetrics & Gynecology
PROC: 10D00Z1 Extraction of Products of Conception, Low, Open Approach (ICD-10-PCS; principal; 2018-02-04)
DX: O60.23X0 Term delivery with preterm labor, third trimester, not applicable or unspecified (principal); O98.42 Viral hepatitis complicating childbirth; D62 Acute posthemorrhagic anemia; O34.211 Maternal care for low transverse scar from previous cesarean delivery; Z3A.37 37 weeks gestation of pregnancy; Z37.0 Single live birth; B19.20 Unspecified viral hepatitis C without hepatic coma; O99.334 Smoking (tobacco) complicating childbirth; F17.210 Nicotine dependence, cigarettes, uncomplicated; O26.893 Other specified pregnancy related conditions, third trimester; E87.6 Hypokalemia; O99.02 Anemia complicating childbirth; O34.593 Maternal care for other abnormalities of gravid uterus, third trimester; R78.4 Finding of other drugs of addictive potential in blood
CPT/HCPCS: 01961; 36415; 59025; 80048; 80053; 80305-QW; 81001; 85027; 86850; 86900; 86901; 87077; 87081; 87186; 90471; 90715; A9270-GY; J0690; J1885; J2274; J2590; J3480; J7120

== ENCOUNTER 2018-02-15 21:38 | Emergency (ER) | payer MEDICAID ==
[2018-02-15 21:46] VITALS: BP 103/76
== END 2018-02-16 03:00 | disposition left against medical advice (07) ==
LOC: DL.ED 21:38
DX: Z53.21 Procedure and treatment not carried out due to patient leaving prior to being seen by health care provider (principal)

== ENCOUNTER 2018-02-16 19:08 | Emergency (ER) | payer MEDICAID ==
[2018-02-16] MEDS ORDERED: Clindamycin Phosphate 900 MG in Sodium Chloride 0.9% 100 ML IV ONE (19:34)
[2018-02-16] MEDS ORDERED: Sodium Chloride 0.9% 1,000 ML IV ONE (19:34)
[2018-02-16] MEDS ORDERED: Acetaminophen 325 MG Tab PO ONE (19:37)
--- NOTE | 2018-02-16 19:42 | EDM.PDOC ---
ED HPI GENERAL MEDICAL PROBLEM - General Chief Complaint: Wound Recheck Stated Complaint: CSECTION STITCHES INFECTED [id number] Time Seen by Provider: 02/16/18 19:38 Source of Information: Reports: Patient History Limitations: Reports: No Limitations - History of Present Illness INITIAL COMMENTS - FREE TEXT/NARRATIVE: onset of infection yesterday worse today with fever. Left Lower Abdomen Pain Score (Numeric/FACES): 9 - Related Data Allergies Allergy/AdvReac Type Severity Reaction Status Date / Time No Known Allergies Allergy Verified 02/16/18 19:20 Home Meds: Home Meds . 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: Hematologic History: Reports: Anemia - Infectious Disease History Infectious Disease History: Reports: Hepatitis C - Past Surgical History HEENT Surgical History: Reports: Oral Surgery GI Surgical History: Reports: Cholecystectomy Female Surgical History: Reports: Section Social & Family History - Tobacco Use Smoking Status *Q: Current Every Day Smoker Years of Tobacco use: 3 Packs/Tins Daily: 0.2 Second Hand Smoke Exposure: Yes - Caffeine Use Caffeine Use: Reports: Coffee, Soda - Recreational Drug Use Recreational Drug Use: No ED ROS GENERAL - Review of Systems Review Of Systems: ROS reveals no pertinent complaints other than HPI. ED EXAM, SKIN/RASH Exam: See Below Exam Limited By: No Limitations General Appearance: Alert, WD/WN, Mild Distress, Other ([place]) Ears: Hearing Grossly Normal Throat/Mouth: Normal Voice, No Airway Compromise Head: Atraumatic Neck: Non-Tender, Full Range of Motion Respiratory/Chest: No Respiratory Distress Cardiovascular: Regular Rate, Rhythm GI/Abdominal: Tender, Other (over infected site with local cellulitis) Neurological: Alert, Oriented, Normal Cognition, Normal Gait, No Motor/Sensory Deficits Psychiatric: Tearful Skin: Warm, Dry, Normal Color Location, Skin: Abdomen Associated features: Warmth, Tenderness, Inflammation Course - Vital Signs Last Recorded V/S: Last Vital Signs Temp 38.4 C H 02/16/18 22:10 Pulse 113 H 02/16/18 22:10 Resp 18 02/16/18 22:10 BP 110/61 02/16/18 22:10 Pulse Ox 99 02/16/18 22:10 - Orders/Labs/Meds Orders: Active Orders 24 hr Category Date Time Status Ellis Catheter Insertion [Insert Urinary Catheter] [OM. Care 02/16/18 21:00 Ordered PC] Q24H Urinary Catheter Assessment [RC] ASDIRECTED Care 02/16/18 20:50 Active CULTURE BLOOD [BC] Stat Lab 02/16/18 19:30 Received CULTURE WOUND + SMEAR [RM] Stat Lab 02/16/18 19:25 Received Labs: Laboratory Tests 02/16/18 02/16/18 02/16/18 Range/Units 19:30 19:30 19:30 WBC 21.2 H (5.0-10.0) 10^3/uL RBC 4.98 (4.2-5.4) 10^6/uL Hgb 12.8 D (12.0-16.0) g/dL Hct 39.4 (37.0-47.0) % MCV 79.1 L D (80-100) fL MCH 25.7 L (27.0-34.0) pg MCHC 32.5 L (33.0-35.0) g/dL Plt Count 298 D (150-450) 10^3/uL Neut % (Auto) 78.1 H (42.2-75.2) % Lymph % (Auto) 14.9 L (20.5-50.1) % [place] % (Auto) 6.3 (2-8) % Eos % (Auto) 0.6 L (1.0-3.0) % Baso % (Auto) 0.1 (0.0-1.0) % Sodium 133 L (135-145) mmol/L Potassium 3.1 L (3.6-5.0) mmol/L Chloride 100 L (101-111) mmol/L Carbon Dioxide 23.0 (21.0-31.0) mmol/L Anion Gap 13.1 BUN 10 (7-18) mg/dL Creatinine 0.7 (0.6-1.3) mg/dL Est Cr Clr Drug Dosing 105.74 mL/min Estimated GFR (MDRD) > 60 BUN/Creatinine Ratio 14.28 Glucose 83 (74-105) mg/dL Lactic Acid 1.5 (0.5-2.2) mmol/L Calcium 8.1 L (8.4-10.2) mg/dl Total Bilirubin 1.7 H (0.2-1.0) mg/dL AST 28 (10-42) IU/L ALT 32 (10-60) IU/L Alkaline Phosphatase 107 (42-121) IU/L Total Protein 7.2 (6.7-8.2) g/dl Albumin 3.7 (3.2-5.5) g/dl Globulin 3.5 Albumin/Globulin Ratio 1.06 Urine Color (YELLOW) Urine Appearance (CLEAR) Urine pH (5.0-9.0) Ur Specific Joiner (1.005-1.030) Urine Protein (NEGATIVE) Urine Glucose (UA) (NEGATIVE) Urine Ketones (NEGATIVE) Urine Occult Blood (NEGATIVE) Urine Nitrite (NEGATIVE) Urine Bilirubin (NEGATIVE) Urine Urobilinogen (0.2-1.0) mg/dL Ur Leukocyte Esterase (NEGATIVE) Urine RBC /HPF Urine WBC (0-5/HPF) /HPF Ur Epithelial Cells /HPF Urine Bacteria (0-FEW/HPF) /HPF Urine Other Urine HCG, Qual Urine Opiates Screen (NEGATIVE) Ur Oxycodone Screen (NEGATIVE) Urine Methadone Screen (NEGATIVE) Ur Barbiturates Screen (NEGATIVE) U Tricyclic Antidepress (NEGATIVE) Ur Phencyclidine Scrn (NEGATIVE) Ur Amphetamine Screen (NEGATIVE) U Methamphetamines Scrn (NEGATIVE) Urine MDMA Screen (NEGATIVE) U Benzodiazepines Scrn (NEGATIVE) Urine Cocaine Screen (NEGATIVE) U Marijuana (THC) Screen (NEGATIVE) 02/16/18 02/16/18 02/16/18 Range/Units 21:00 21:00 21:00 WBC (5.0-10.0) 10^3/uL RBC (4.2-5.4) 10^6/uL Hgb (12.0-16.0) g/dL Hct (37.0-47.0) % MCV (80-100) fL MCH (27.0-34.0) pg MCHC (33.0-35.0) g/dL Plt Count (150-450) 10^3/uL Neut % (Auto) (42.2-75.2) % Lymph % (Auto) (20.5-50.1) % [place] % (Auto) (2-8) % Eos % (Auto) (1.0-3.0) % Baso % (Auto) (0.0-1.0) % Sodium (135-145) mmol/L Potassium (3.6-5.0) mmol/L Chloride (101-111) mmol/L Carbon Dioxide (21.0-31.0) mmol/L Anion Gap BUN (7-18) mg/dL Creatinine (0.6-1.3) mg/dL Est Cr Clr Drug Dosing mL/min Estimated GFR (MDRD) BUN/Creatinine Ratio Glucose (74-105) mg/dL Lactic Acid (0.5-2.2) mmol/L Calcium (8.4-10.2) mg/dl Total Bilirubin (0.2-1.0) mg/dL AST (10-42) IU/L ALT (10-60) IU/L Alkaline Phosphatase (42-121) IU/L Total Protein (6.7-8.2) g/dl Albumin (3.2-5.5) g/dl Globulin Albumin/Globulin Ratio Urine Color Yellow (YELLOW) Urine Appearance Cloudy (CLEAR) Urine pH 6.0 (5.0-9.0) Ur Specific Joiner 1.010 (1.005-1.030) Urine Protein Negative (NEGATIVE) Urine Glucose (UA) Negative (NEGATIVE) Urine Ketones 80 H (NEGATIVE) Urine Occult Blood Trace-lysed H (NEGATIVE) Urine Nitrite Negative (NEGATIVE) Urine Bilirubin Negative (NEGATIVE) Urine Urobilinogen 1.0 (0.2-1.0) mg/dL Ur Leukocyte Esterase Moderate H (NEGATIVE) Urine RBC 0-5 /HPF Urine WBC Semi-packed H (0-5/HPF) /HPF Ur Epithelial Cells Moderate H /HPF Urine Bacteria Many H (0-FEW/HPF) /HPF Urine Other See note Urine HCG, Qual Negative Urine Opiates Screen Negative (NEGATIVE) Ur Oxycodone Screen Positive H (NEGATIVE) Urine Methadone Screen Negative (NEGATIVE) Ur Barbiturates Screen Negative (NEGATIVE) U Tricyclic Antidepress Negative (NEGATIVE) Ur Phencyclidine Scrn Negative (NEGATIVE) Ur Amphetamine Screen Positive H (NEGATIVE) U Methamphetamines Scrn Positive H (NEGATIVE) Urine MDMA Screen Negative (NEGATIVE) U Benzodiazepines Scrn Negative (NEGATIVE) Urine Cocaine Screen Negative (NEGATIVE) U Marijuana (THC) Screen Negative (NEGATIVE) Meds: Medications Discontinued Medications Generic Name Dose Route Start Last Admin Trade Name Freq PRN Reason Stop Dose Admin Acetaminophen 325 mg 02/16/18 19:37 Tylenol PO 02/16/18 19:38 NOW ONE Hydromorphone HCl 1 mg 02/16/18 19:53 02/16/18 20:17 Dilaudid IVPUSH 02/16/18 19:54 1 mg ONETIME ONE Administration Sodium Chloride 1,000 mls @ 999 mls/hr 02/16/18 19:34 02/16/18 19:39 Normal Saline IV 02/16/18 20:34 999 mls/hr .BOLUS ONE Administration Clindamycin Phosphate 900 mg/ 106 mls @ 200 mls/hr 02/16/18 19:34 02/16/18 19 :47 Sodium Chloride IV 02/16/18 20:05 200 mls/hr ONETIME ONE Administration Iopamidol 75 ml 02/16/18 20:10 02/16/18 20:15 Isovue-300 (61%) IVPUSH 02/16/18 20:11 75 ml ONETIME ONE Administration Ondansetron HCl 4 mg 02/16/18 19:53 02/16/18 20:16 Zofran IV 02/16/18 19:54 4 mg ONETIME ONE Administration - Re-Assessments/Exams Free Text/Narrative Re-Assessment/Exam: 02/16/18 20:35 while in CA5T scanner pt c/o problem with speaking and moving her extremities. worried about a stroke. 02/16/18 22:[address] Moeller @ who kindly accepted pt. Departure - Departure Time of Disposition: 22:38 Disposition: DC/Tfer to Acute Hospital 02 Condition: Fair Clinical Impression: Hypertensive encephalopathy syndrome Cellulitis Qualifiers: Site of cellulitis: trunk Site of cellulitis of trunk: abdominal wall Qualified Code(s): L03.311 - Cellulitis of abdominal wall - Discharge Information Forms: Interfacility Transfer EMTALA - My Orders Last 24 Hours: My Active Orders 02/16/18 19:25 CULTURE WOUND + SMEAR [RM] Stat 02/16/18 19:30 CULTURE BLOOD [BC] Stat 02/16/18 20:50 Urinary Catheter Assessment [RC] ASDIRECTED 02/16/18 21:00 Ellis Catheter Insertion [Insert Urinary Catheter] [OM.PC] Q24H - Assessment/Plan Last 24 Hours: My Active Orders 08/23/18 19:25 CULTURE WOUND + SMEAR [RM] Stat 02/16/18 19:30 CULTURE BLOOD [BC] Stat 02/16/18 20:50 Urinary Catheter Assessment [RC] ASDIRECTED 02/16/18 21:00 Ellis Catheter Insertion [Insert Urinary Catheter] [OM.PC] Q24H
[2018-02-16] MEDS ORDERED: HYDROmorphone 0.5 MG/0.5 ML Syringe IVPUSH ONE (19:53)
[2018-02-16] MEDS ORDERED: Ondansetron 4 MG/2 ML SDV IV ONE (19:53)
[2018-02-16 19:58] LABS: ANION GAP 13.1; CHLORIDE,CL 100 mmol/L (101-111); SODIUM,NA 133 mmol/L (135-145)
[2018-02-16] MEDS ORDERED: Iopamidol 612 MG/ML 75 ML Bottle IVPUSH ONE (20:10)
[2018-02-16 22:42] VITALS: BP 109/46
[2018-02-16] MEDS ORDERED: Acetaminophen 325 MG Tab ONE (23:12)
== END 2018-02-16 23:15 ==
LOC: EEVIPCON 19:08 → DL.ED 19:08
DX: I67.4 Hypertensive encephalopathy (principal); L03.311 Cellulitis of abdominal wall; I10 Essential (primary) hypertension; F17.210 Nicotine dependence, cigarettes, uncomplicated
CPT/HCPCS: 36415; 51702; 70450; 74177; 80053; 80305; 81001; 81025; 83605; 85025; 87040; 87070; 87077; 87186; 87205; 96365; 96375; 99285; A9270; J1170; J2405; J3490; J7030; J7050; Q9967

== ENCOUNTER 2020-03-15 16:17 | Emergency (ER) | payer MEDICAID, OTHER ==
[2020-03-15 18:12] VITALS: BP 105/63; PULSE 86
--- NOTE | 2020-03-15 18:35 | EDM.PDOC ---
Scribed by Daniella Chapin 03/15/20 [id number] for Mere Fernandez MD ED HPI GENERAL MEDICAL PROBLEM - General Chief Complaint: General Stated Complaint: covid concern Time Seen by Provider: 03/15/20 18:00 Source of Information: Reports: Patient, EMS, EMS Notes Reviewed, RN, RN Notes Reviewed History Limitations: Reports: No Limitations - History of Present Illness INITIAL COMMENTS - FREE TEXT/NARRATIVE: Patient presents to ED by [facility] stating she has been exposed to COVID, but does not know when. She has subjective fever, chills, body aches, states ears hurt, left ear but touches right, has had intermittent shortness of breath. She has never been tested for COVID she states. 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: 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 History: Reports: Anxiety, Depression Hematologic History: Reports: Anemia - Infectious Disease History Infectious Disease History: Reports: Hepatitis C - Past Surgical History HEENT Surgical History: Reports: Oral Surgery GI Surgical History: Reports: Cholecystectomy Female Surgical History: Reports: Section Social & Family History - Tobacco Use Smoking Status *Q: Current Every Day Smoker Years of Tobacco use: 2 Packs/Tins Daily: 0.5 - Caffeine Use Caffeine Use: Reports: Coffee, Soda - Recreational Drug Use Recreational Drug Use: No ED ROS GENERAL - Review of Systems Review Of Systems: Comprehensive ROS is negative, except as noted in HPI. ED EXAM, GENERAL - Physical Exam Exam: See Below Exam Limited By: No Limitations General Appearance: Alert, WD/WN, No Apparent Distress Eye Exam: Bilateral Eye: EOMI, Normal Inspection, PERRL Ears: Normal External Exam, Normal Canal, Hearing Grossly Normal, Normal TMs Nose: Normal Inspection, Normal Mucosa, No Blood Throat/Mouth: Normal Inspection, Normal Lips, Normal Teeth, Normal Gums, Normal Oropharynx, Normal Voice, No Airway Compromise Head: Atraumatic, Normocephalic Neck: Normal Inspection, Supple, Non-Tender, Full Range of Motion Respiratory/Chest: No Respiratory Distress, Lungs Clear, Normal Breath Sounds, No Accessory Muscle Use, Chest Non-Tender Cardiovascular: Normal Peripheral Pulses, Regular Rate, Rhythm, No Edema, No Gallop, No JVD, No Murmur, No Rub GI/Abdominal: Normal Bowel Sounds, Soft, Non-Tender, No Organomegaly, No Distention, No Abnormal Bruit, No Mass (Female) Exam: Deferred Rectal (Female) Exam: Deferred Back Exam: Normal Inspection, Full Range of Motion, NT Extremities: Normal Inspection, Normal Range of Motion, Non-Tender, Normal Capillary Refill, No Pedal Edema Neurological: Alert, Oriented, CN II-XII Intact, Normal Cognition, Normal Gait, Normal Reflexes, No Motor/Sensory Deficits Psychiatric: Normal Affect, Normal Mood Skin Exam: Warm, Dry, Intact, Normal Color, No Rash Course - Vital Signs Last Recorded V/S: Last Vital Signs Temp 97.8 F 03/15/20 18:09 Pulse 86 03/15/20 18:09 Resp 16 03/15/20 18:09 BP 105/63 03/15/20 18:09 Pulse Ox 99 03/15/20 18:09 Departure - Departure Time of Disposition: 18:32 Disposition: Home, Self-Care 01 Condition: Good Clinical Impression: Exposure to COVID-19 virus - Discharge Information *PRESCRIPTION DRUG MONITORING PROGRAM REVIEWED*: Not Applicable *COPY OF PRESCRIPTION DRUG MONITORING REPORT IN PATIENT NANCY: Not Applicable Forms: ED Department Discharge Sepsis Event Note (ED) - Evaluation Sepsis Screening Result: No Definite Risk - Focused Exam Vital Signs: Vital Signs Temp Pulse Resp BP Pulse Ox 03/15/20 18:09 97.8 F 86 16 105/63 99 - Assessment/Plan Assessment:: 34 yo with concerns about COVID exposure and a mild cough Plan: COVID sent to [facility] will contact pt with results when available fu with PCP in 5-7 days I have read and agree with the documentation that has been completed regarding this visit. By signing this record, I attest that the documentation was completed in my physical presence and is an accurate record of the encounter.
== END 2020-03-15 19:01 | disposition home or self-care (01) ==
LOC: DL.ED 16:17
DX: R50.9 Fever, unspecified (principal); R05 Cough; Z20.828 Contact with and (suspected) exposure to other viral communicable diseases; F41.9 Anxiety disorder, unspecified; F32.9 Major depressive disorder, single episode, unspecified; F17.210 Nicotine dependence, cigarettes, uncomplicated; Z79.899 Other long term (current) drug therapy
CPT/HCPCS: 99284; U0002

== ENCOUNTER 2020-03-19 16:07 | Emergency (ER) | payer MEDICAID, OTHER, SELFPAY ==
[2020-03-19 16:06] VITALS: BP 121/62; PULSE 95
[2020-03-19 16:33] LABS: ANION GAP 10.7 mEq/L (7-13); CHLORIDE,CL 105 mmol/L (98-107); SODIUM,NA 142 mmol/L (136-145)
== END 2020-03-19 16:49 | disposition left against medical advice (07) ==
LOC: DL.ED 16:07
DX: Z53.21 Procedure and treatment not carried out due to patient leaving prior to being seen by health care provider (principal)
CPT/HCPCS: 36415; 80053; 80305-QW; 80307; 81001; 81025; 85025; 86140

== ENCOUNTER 2020-03-19 17:44 | Emergency (ER) | payer MEDICAID, SELFPAY ==
[2020-03-19 18:00] VITALS: BP 123/59; PULSE 93
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
--- NOTE | 2020-03-19 19:29 | CR ---
PROCEDURE INFORMATION: Exam: XR Abdomen, 1 View Exam date and time: 03/19/2020 6:53 PM Age: 34 years old Clinical indication: Abdominal pain Tech Notes: Looking for any foreign objects. No injury. TECHNIQUE: Imaging protocol: Portable supine AP view of the abdomen-pelvis. Tech Note: Metallic artifacts are from patient's jeans which were not able to be taken off. COMPARISON: CT Abdomen Pelvis w Cont 02/16/2018 FINDINGS: Nonobstructive bowel gas pattern with no gross evidence for pneumoperitoneum. Cholecystectomy clips again noted. A 4 mm opacity overlying the inferior tip of the liver corresponds to a right flank subdermal calcification which was better demonstrated on the comparison CT scan. The study is mildly limited by overlying metallic clothing artifacts, but otherwise no abnormal calcifications or radiopaque foreign bodies are detected. The osseous structures are intact. IMPRESSION: Essentially negative KUB x-ray as above.
== END 2020-03-19 19:07 ==
LOC: DL.ED 17:44
DX: R44.3 Hallucinations, unspecified (principal); F15.10 Other stimulant abuse, uncomplicated; S40.022A Contusion of left upper arm, initial encounter; S40.021A Contusion of right upper arm, initial encounter; F41.9 Anxiety disorder, unspecified; F17.210 Nicotine dependence, cigarettes, uncomplicated; Z79.899 Other long term (current) drug therapy
CPT/HCPCS: 74018; 99284-25

== ENCOUNTER 2020-03-26 12:45 | Emergency (ER) | payer MEDICAID ==
[2020-03-26 13:25] VITALS: BP 122/61; PULSE 99
[2020-03-26] MEDS ORDERED: Sodium Chloride 0.9% 10 ML Syringe FLUSH PRN (13:28)
[2020-03-26] MEDS ORDERED: diphenhydrAMINE 50 MG/ML SDV IVPUSH ONE (13:28)
[2020-03-26] MEDS ORDERED: Ketorolac 30 MG/ML SDV IVPUSH ONE (13:28)
[2020-03-26] MEDS ORDERED: Lactated Ringers 1,000 ML IV ONE (13:28)
[2020-03-26] MEDS ORDERED: Ondansetron 4 MG/2 ML SDV IV ONE (13:28)
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
[2020-03-26 14:00] LABS: ANION GAP 11.9 mEq/L (7-13); CHLORIDE,CL 103 mmol/L (98-107); SODIUM,NA 140 mmol/L (136-145)
--- NOTE | 2020-03-26 16:29 | CT ---
EXAMINATION: Abdomen Pelvis wo Cont SEX: Female AGE: 34 years CLINICAL HISTORY: 34-year-old female with "intractable" (recurrent) right lower quadrant pain (previous CT abdomen 16 February 2018 revealed "cholecystectomy; evidence of previous section and cellulitis anterior abdominal wall, LLQ; left renal pyelocaliectasis/ureterectasis"). WBC 7800. Positive drug screen. Scan technique: Volume acquisition of data unenhanced CT scan abdomen and pelvis obtained with the patient lying supine on the Siemens multislice scanner [place], [place]. All data archived in the PACS system for storage, reformatting axial/sagittal/coronal planes and study. Interpretation: 1. Cholecystectomy (surgical clips RUQ). 2. Symmetric normal size and anatomic configuration unenhanced kidneys. No cortical mass, nephrolithiasis or obstructive uropathy. Midline urinary bladder and uterus unremarkable. No pelvic mass. 3. No sign of calcified appendicolith or acute inflammation RLQ. Normal appendix. No abscess or inflammatory "dirty" peritoneal fat. No sign of mechanical bowel obstruction. No ascites or free air. 4. Lumbar spine unremarkable. Normal caliber aortoiliac vessels. No ventral wall or inguinal hernia. 5. Lung bases clear. Normal cardiac silhouette. No pericardial or pleural effusion. CONCLUSION: No evidence for acute abdomen (mechanical bowel obstruction or peritonitis).
== END 2020-03-26 16:45 | disposition left against medical advice (07) ==
LOC: DL.ED 12:45
DX: R10.31 Right lower quadrant pain (principal); F19.10 Other psychoactive substance abuse, uncomplicated; R44.3 Hallucinations, unspecified
CPT/HCPCS: 36415; 74176; 80053; 80305; 80307; 81003; 81025; 85025; 86140; 96361; 96374; 96375; 99284; J1200; J1885; J2405; J7120

== ENCOUNTER 2020-04-01 14:47 | Emergency (ER) | payer MEDICAID ==
--- NOTE | 2020-04-01 17:04 | EDM.PDOC ---
ED HPI GENERAL MEDICAL PROBLEM - General Chief Complaint: Chest Pain Stated Complaint: LEFT SIDE OF CHEST, MIDDLE OF THE BACK TIGHTENS Time Seen by Provider: 04/01/20 17:04 Source of Information: Reports: Patient, RN, RN Notes Reviewed - History of Present Illness INITIAL COMMENTS - FREE TEXT/NARRATIVE: Fiordaliza comes into the ED with her chronic chest and upper back pain. She states since hortensia last time she was at the ED the pain hasn't changed. She denies any new symptoms or injury. She has not seen her primary physician. Denies fever, shortness of breath, nausea, or vomiting. Onset: Unknown/Unsure Duration: Constant Location: Reports: Chest, Back Quality: Reports: Ache, Same as Previous Episode Severity: Moderate Improves with: Reports: None Worsens with: Reports: Movement Associated Symptoms: Reports: No Other Symptoms - Related Data Allergies Allergy/AdvReac Type Severity Reaction Status Date / Time No Known Allergies Allergy Verified 03/15/20 18:12 Home Meds: Home Meds . 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: Musculoskeletal History: Reports: None Neurological History: Reports: None Psychiatric History: Reports: Anxiety, Depression Endocrine/Metabolic History: Reports: None Hematologic History: Reports: Anemia Immunologic History: Reports: None Oncologic (Cancer) History: Reports: None Dermatologic History: Reports: None - Infectious Disease History Infectious Disease History: Reports: Other (See Below) Other Infectious Disease History: covid - Past Surgical History Head Surgeries/Procedures: Reports: None HEENT Surgical History: Reports: Oral Surgery GI Surgical History: Reports: Cholecystectomy Female Surgical History: Reports: Section Social & Family History - Family History Family Medical History: Noncontributory - Caffeine Use Caffeine Use: Reports: Coffee - Living Situation & Occupation Living situation: Reports: with Family ED ROS GENERAL - Review of Systems Review Of Systems: Comprehensive ROS is negative, except as noted in HPI. ED EXAM, GENERAL - Physical Exam Exam: See Below Exam Limited By: No Limitations General Appearance: Alert, WD/WN, No Apparent Distress, Thin Eye Exam: Bilateral Eye: Normal Inspection Nose: Normal Inspection Throat/Mouth: Normal Voice, No Airway Compromise Head: Atraumatic, Normocephalic Neck: Normal Inspection, Supple, Non-Tender, Full Range of Motion Respiratory/Chest: No Respiratory Distress, Lungs Clear, Normal Breath Sounds, No Accessory Muscle Use, Chest Non-Tender Cardiovascular: Normal Peripheral Pulses, Regular Rate, Rhythm, No Edema, No Gallop, No JVD, No Murmur, No Rub GI/Abdominal: Normal Bowel Sounds, Soft, Non-Tender, No Organomegaly, No Distention, No Abnormal Bruit, No Mass Back Exam: Full Range of Motion, Muscle Spasm (upper back), Paraspinal Tenderness (upper thoracic, lower cervical). No: CVA Tenderness (L), CVA Tenderness (R), Vertebral Tenderness Extremities: Normal Inspection, Normal Range of Motion, Non-Tender, Normal Capillary Refill, No Pedal Edema Neurological: Alert, Oriented, CN II-XII Intact, Normal Cognition, Normal Gait, No Motor/Sensory Deficits Psychiatric: Normal Mood Skin Exam: Warm, Dry, Intact, Normal Color, No Rash Course - Vital Signs Last Recorded V/S: Last Vital Signs Temp 98.1 F 04/01/20 17:01 Pulse 88 04/01/20 17:01 Resp 18 04/01/20 17:01 BP 114/63 04/01/20 17:01 Pulse Ox 100 04/01/20 17:01 - Orders/Labs/Meds Orders: Active Orders 24 hr Category Date Time Status EKG 12 Lead [EKG Documentation Completion] [RC] STAT Care 04/01/20 16:25 Active DRUG SCREEN URINE BIORAD [URCHEM] Stat Lab 04/01/20 16:25 Ordered HCG QUALITATIVE,URINE [URCHEM] Stat Lab 04/01/20 16:31 Ordered UA RFX PAOLA AND CULT IF INDIC [URIN] Stat Lab 04/01/20 16:25 Ordered Labs: Laboratory Tests 04/01/20 04/01/20 04/01/20 Range/Units 16:39 16:39 16:39 WBC 8.9 (5.0-10.0) 10^3/uL RBC 4.96 (4.2-5.4) 10^6/uL Hgb 14.1 (12.0-16.0) g/dL Hct 41.9 (37.0-47.0) % MCV 84.5 (80-100) fL MCH 28.4 (27.0-34.0) pg MCHC 33.7 (33.0-35.0) g/dL Plt Count 307 (150-450) 10^3/uL Neut % (Auto) 52.4 (42.2-75.2) % Lymph % (Auto) 36.9 (20.5-50.1) % [place] % (Auto) 8.9 H (2-8) % Eos % (Auto) 1.6 (1.0-3.0) % Baso % (Auto) 0.2 (0.0-1.0) % D-Dimer, Quantitative < 100 (0-400) ng/mL Sodium 142 (136-145) mmol/L Potassium 4.5 (3.5-5.1) mmol/L Chloride 104 (98-107) mmol/L Carbon Dioxide 30 (21-32) mmol/L Anion Gap 12.5 (7-13) mEq/L BUN 8 (7-18) mg/dL Creatinine 0.67 (0.55-1.02) mg/dL Est Cr Clr Drug Dosing TNP Estimated GFR (MDRD) > 60 BUN/Creatinine Ratio 11.9 (No establ ref range) Glucose 86 (74-99) mg/dL Calcium 9.2 (8.5-10.1) mg/dL Total Bilirubin 0.9 (0.2-1.0) mg/dL AST 14 L (15-37) U/L ALT 31 (14-59) U/L Alkaline Phosphatase 85 (46-116) U/L Troponin I < 0.017 (0.000-0.056) ng/mL Total Protein 7.5 (6.4-8.2) g/dL Albumin 4.0 (3.4-5.0) g/dL Globulin 3.5 Albumin/Globulin Ratio 1.1 Meds: Medications Discontinued Medications Generic Name Dose Route Start Last Admin Trade Name Freq PRN Reason Stop Dose Admin Cyclobenzaprine HCl 10 mg 04/01/20 18:27 04/01/20 18:36 Flexeril PO 04/01/20 18:28 10 mg ONETIME ONE Administration Ketorolac Tromethamine 60 mg 04/01/20 18:27 04/01/20 18:36 Toradol IM 04/01/20 18:28 60 mg ONETIME ONE Administration Departure - Departure Time of Disposition: 18:28 Disposition: Home, Self-Care 01 Condition: Good Clinical Impression: Musculoskeletal chest pain, Upper back pain - Discharge Information *PRESCRIPTION DRUG MONITORING PROGRAM REVIEWED*: Not Applicable *COPY OF PRESCRIPTION DRUG MONITORING REPORT IN PATIENT NANCY: Not Applicable Instructions: Acute Back Pain, Adult, Chest Wall Pain, [id number] Forms: ED Department Discharge Additional Instructions: Rx: Cyclobenzaprine 10mg Rx: Naprosyn 500mg Follow up in clinic next week for recheck. Sepsis Event Note (ED) - Focused Exam Vital Signs: Vital Signs Temp Pulse Resp BP Pulse Ox 04/01/20 17:01 98.1 F 88 18 114/63 100 - My Orders Last 24 Hours: My Active Orders 04/01/20 16:25 EKG 12 Lead [EKG Documentation Completion] [RC] STAT DRUG SCREEN URINE BIORAD [URCHEM] Stat UA RFX PAOLA AND CULT IF INDIC [URIN] Stat 04/01/20 16:31 HCG QUALITATIVE,URINE [URCHEM] Stat - Assessment/Plan Last 24 Hours: My Active Orders 04/01/20 16:25 EKG 12 Lead [EKG Documentation Completion] [RC] STAT DRUG SCREEN URINE BIORAD [URCHEM] Stat UA RFX PAOLA AND CULT IF INDIC [URIN] Stat 04/01/20 16:31 HCG QUALITATIVE,URINE [URCHEM] Stat
[2020-04-01 17:15] LABS: ANION GAP 12.5 mEq/L (7-13); CHLORIDE,CL 104 mmol/L (98-107); SODIUM,NA 142 mmol/L (136-145)
[2020-04-01 17:19] VITALS: BP 114/63; PULSE 88
[2020-04-01] MEDS ORDERED: Cyclobenzaprine 10 MG Tab PO ONE (18:27)
[2020-04-01] MEDS ORDERED: Ketorolac 30 MG/ML SDV IM ONE (18:27)
== END 2020-04-01 18:40 | disposition home or self-care (01) ==
LOC: DL.ED 14:47
DX: R07.89 Other chest pain (principal); M54.6 Pain in thoracic spine
CPT/HCPCS: 36415; 80053; 84484; 85025; 85379; 93005; 96372; 99283; A9270; J1885

== ENCOUNTER 2020-04-03 05:00 | Emergency (ER) | payer OTHER, MEDICAID ==
[2020-04-03 05:05] VITALS: BP 125/70; PULSE 106
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
[2020-04-03 05:58] LABS: ANION GAP 8.7 mEq/L (7-13); CHLORIDE,CL 105 mmol/L (98-107); SODIUM,NA 139 mmol/L (136-145)
[2020-04-03 06:01] LABS: ACETAMINOPHEN 0 ug/mL (10-30 (Therapeutic))
[2020-04-03] MEDS ORDERED: Azithromycin 250 MG Tab PO ONE (06:27)
[2020-04-03] MEDS ORDERED: cefTRIAXone 250 MG, Lidocaine 1% 0.9 ML IM ONE ×2 (06:27)
[2020-04-07 16:02] LABS: C.TRACHOMATIS BY TMA Negative (Negative); N.GONORRHOEAE BY TMA Positive (Negative)
== END 2020-04-03 08:15 | disposition home or self-care (01) ==
LOC: DL.ED 05:00
DX: T74.21XA Adult sexual abuse, confirmed, initial encounter (principal); F17.210 Nicotine dependence, cigarettes, uncomplicated
CPT/HCPCS: 36415; 80053; 80305; 80307; 81001; 81025; 85025; 87086; 87491; 87591; 96372; 99285; A9270; J0696; J2001

== ENCOUNTER 2020-04-11 00:21 | Emergency (ER) | payer MEDICAID ==
[2020-04-11 00:31] VITALS: BP 124/58; PULSE 88
[2020-04-11 01:06] LABS: ANION GAP 9.6 mEq/L (7-13); CHLORIDE,CL 106 mmol/L (98-107); SODIUM,NA 141 mmol/L (136-145)
--- NOTE | 2020-04-11 01:27 | EDM.PDOC ---
ED HPI GENERAL MEDICAL PROBLEM - General Chief Complaint: General Stated Complaint: AMBULANCE Time Seen by Provider: 04/11/20 00:30 Source of Information: Reports: Patient, RN History Limitations: Reports: No Limitations - History of Present Illness INITIAL COMMENTS - FREE TEXT/NARRATIVE: ED with c/o vague pain to anterior left shoulder, had same last week, then gone . Left Chest Pain Score (Numeric/FACES): 8 - Related Data Allergies Allergy/AdvReac Type Severity Reaction Status Date / Time No Known Allergies Allergy Verified 04/11/20 00:28 Home Meds: Home Meds . 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: Musculoskeletal History: Reports: None Neurological History: Reports: None Psychiatric History: Reports: Anxiety, Depression Endocrine/Metabolic History: Reports: None Hematologic History: Reports: Anemia Immunologic History: Reports: None Oncologic (Cancer) History: Reports: None Dermatologic History: Reports: None - Infectious Disease History Infectious Disease History: Reports: Other (See Below) Other Infectious Disease History: covid - Past Surgical History Head Surgeries/Procedures: Reports: None HEENT Surgical History: Reports: Oral Surgery GI Surgical History: Reports: Cholecystectomy Female Surgical History: Reports: Section Social & Family History - Family History Family Medical History: Noncontributory - Tobacco Use Tobacco Use Status *Q: Heavy Tobacco User Years of Tobacco use: 10 Packs/Tins Daily: 0.5 - Caffeine Use Caffeine Use: Reports: Coffee - Recreational Drug Use Recreational Drug Type: Reports: Marijuana/Hashish, Methamphetamine, Oxycodone - Living Situation & Occupation Living situation: Reports: with Family ED ROS GENERAL - Review of Systems Review Of Systems: Comprehensive ROS is negative, except as noted in HPI. ED EXAM, GENERAL - Physical Exam Exam: See Below Exam Limited By: No Limitations General Appearance: Alert, No Apparent Distress, Thin Eye Exam: Bilateral Eye: EOMI, PERRL (7) Ears: Normal External Exam, Normal TMs Nose: Normal Inspection Throat/Mouth: Normal Inspection Head: Atraumatic, Normocephalic Neck: Normal Inspection Respiratory/Chest: No Respiratory Distress, Lungs Clear, Normal Breath Sounds Cardiovascular: Regular Rate, Rhythm GI/Abdominal: Normal Bowel Sounds, Soft Extremities: Normal Range of Motion Neurological: Alert, Oriented Psychiatric: Other (hallucinations) Skin Exam: Warm, Dry, Normal Color Course - Vital Signs Last Recorded V/S: Last Vital Signs Temp 97.8 F 04/11/20 00:28 Pulse 88 04/11/20 00:28 Resp 16 04/11/20 00:28 BP 124/58 L 04/11/20 00:28 Pulse Ox 100 04/11/20 00:28 - Orders/Labs/Meds Orders: Active Orders 24 hr Category Date Time Status CORONAVIRUS COVID-19 PCR [facility]L Stat Lab 04/11/20 00:45 Received Labs: Laboratory Tests 04/11/20 04/11/20 04/11/20 Range/Units 00:40 00:40 00:40 WBC 6.9 (5.0-10.0) 10^3/uL RBC 4.05 L (4.2-5.4) 10^6/uL Hgb 11.5 L (12.0-16.0) g/dL Hct 34.3 L (37.0-47.0) % MCV 84.7 (80-100) fL MCH 28.4 (27.0-34.0) pg MCHC 33.5 (33.0-35.0) g/dL Plt Count 282 (150-450) 10^3/uL Neut % (Auto) 49.5 (42.2-75.2) % Lymph % (Auto) 36.7 (20.5-50.1) % [place] % (Auto) 10.3 H (2-8) % Eos % (Auto) 3.2 H (1.0-3.0) % Baso % (Auto) 0.3 (0.0-1.0) % Sodium 141 (136-145) mmol/L Potassium 3.6 D (3.5-5.1) mmol/L Chloride 106 (98-107) mmol/L Carbon Dioxide 29 (21-32) mmol/L Anion Gap 9.6 (7-13) mEq/L BUN 10 (7-18) mg/dL Creatinine 0.80 (0.55-1.02) mg/dL Est Cr Clr Drug Dosing 90.84 mL/min Estimated GFR (MDRD) > 60 BUN/Creatinine Ratio 12.5 (No establ ref range) Glucose 82 (74-99) mg/dL Calcium 8.7 (8.5-10.1) mg/dL Total Bilirubin 1.1 H (0.2-1.0) mg/dL AST 16 (15-37) U/L ALT 26 (14-59) U/L Alkaline Phosphatase 97 (46-116) U/L Total Protein 6.5 (6.4-8.2) g/dL Albumin 3.5 (3.4-5.0) g/dL Globulin 3.0 Albumin/Globulin Ratio 1.2 Urine Color (YELLOW) Urine Appearance (CLEAR) Urine pH (5.0-9.0) Ur Specific [place] (1.005-1.030) Urine Protein (NEGATIVE) Urine Glucose (UA) (NEGATIVE) Urine Ketones (NEGATIVE) Urine Occult Blood (NEGATIVE) Urine Nitrite (NEGATIVE) Urine Bilirubin (NEGATIVE) Urine Urobilinogen (0.2-1.0) mg/dL Ur Leukocyte Esterase (NEGATIVE) Urine RBC /HPF Urine WBC (0-5/HPF) /HPF Ur Epithelial Cells (NOT SEEN) /HPF Urine Bacteria (0-FEW/HPF) /HPF Urine Opiates Screen (NEGATIVE) Ur Oxycodone Screen (NEGATIVE) Urine Methadone Screen (NEGATIVE) Ur Barbiturates Screen (NEGATIVE) U Tricyclic Antidepress (NEGATIVE) Ur Phencyclidine Scrn (NEGATIVE) Ur Amphetamine Screen (NEGATIVE) U Methamphetamines Scrn (NEGATIVE) Urine MDMA Screen (NEGATIVE) U Benzodiazepines Scrn (NEGATIVE) Urine Cocaine Screen (NEGATIVE) U Marijuana (THC) Screen (NEGATIVE) Ethyl Alcohol < 3 (0) mg/dL 04/11/20 04/11/20 Range/Units 00:56 00:56 WBC (5.0-10.0) 10^3/uL RBC (4.2-5.4) 10^6/uL Hgb (12.0-16.0) g/dL Hct (37.0-47.0) % MCV (80-100) fL MCH (27.0-34.0) pg MCHC (33.0-35.0) g/dL Plt Count (150-450) 10^3/uL Neut % (Auto) (42.2-75.2) % Lymph % (Auto) (20.5-50.1) % [place] % (Auto) (2-8) % Eos % (Auto) (1.0-3.0) % Baso % (Auto) (0.0-1.0) % Sodium (136-145) mmol/L Potassium (3.5-5.1) mmol/L Chloride (98-107) mmol/L Carbon Dioxide (21-32) mmol/L Anion Gap (7-13) mEq/L BUN (7-18) mg/dL Creatinine (0.55-1.02) mg/dL Est Cr Clr Drug Dosing mL/min Estimated GFR (MDRD) BUN/Creatinine Ratio (No establ ref range) Glucose (74-99) mg/dL Calcium (8.5-10.1) mg/dL Total Bilirubin (0.2-1.0) mg/dL AST (15-37) U/L ALT (14-59) U/L Alkaline Phosphatase (46-116) U/L Total Protein (6.4-8.2) g/dL Albumin (3.4-5.0) g/dL Globulin Albumin/Globulin Ratio Urine Color Yellow (YELLOW) Urine Appearance Slightly cloudy (CLEAR) Urine pH 5.5 (5.0-9.0) Ur Specific [place] >= 1.030 (1.005-1.030) Urine Protein Negative (NEGATIVE) Urine Glucose (UA) Negative (NEGATIVE) Urine Ketones Negative (NEGATIVE) Urine Occult Blood Large H (NEGATIVE) Urine Nitrite Negative (NEGATIVE) Urine Bilirubin Negative (NEGATIVE) Urine Urobilinogen 0.2 (0.2-1.0) mg/dL Ur Leukocyte Esterase Negative (NEGATIVE) Urine RBC 0-5 /HPF Urine WBC 0-5 (0-5/HPF) /HPF Ur Epithelial Cells Occasional (NOT SEEN) /HPF Urine Bacteria Few (0-FEW/HPF) /HPF Urine Opiates Screen Negative (NEGATIVE) Ur Oxycodone Screen Negative (NEGATIVE) Urine Methadone Screen Negative (NEGATIVE) Ur Barbiturates Screen Negative (NEGATIVE) U Tricyclic Antidepress Negative (NEGATIVE) Ur Phencyclidine Scrn Negative (NEGATIVE) Ur Amphetamine Screen Positive H (NEGATIVE) U Methamphetamines Scrn Positive H (NEGATIVE) Urine MDMA Screen Positive H (NEGATIVE) U Benzodiazepines Scrn Negative (NEGATIVE) Urine Cocaine Screen Negative (NEGATIVE) U Marijuana (THC) Screen Negative (NEGATIVE) Ethyl Alcohol (0) mg/dL Departure - Departure Time of Disposition: 01:25 Disposition: Home, Self-Care 01 Condition: Good Clinical Impression: Methamphetamine abuse - Discharge Information *PRESCRIPTION DRUG MONITORING PROGRAM REVIEWED*: No *COPY OF PRESCRIPTION DRUG MONITORING REPORT IN PATIENT NANCY: No Instructions: Stimulant Use Disorder-Methamphetamines Referrals: PCP,None [Primary Care Provider] - Forms: ED Department Discharge Additional Instructions: decrease meth use increase fluids follow up in clinic next week Sepsis Event Note (ED) - Evaluation Sepsis Screening Result: No Definite Risk - Focused Exam Vital Signs: Vital Signs Temp Pulse Resp BP Pulse Ox 04/11/20 00:28 97.8 F 88 16 124/58 L 100 - My Orders Last 24 Hours: My Active Orders 04/11/20 00:45 CORONAVIRUS COVID-19 PCR PHL Stat - Assessment/Plan Last 24 Hours: My Active Orders 04/11/20 00:45 CORONAVIRUS COVID-19 PCR PHL Stat
== END 2020-04-11 01:31 | disposition home or self-care (01) ==
LOC: DL.ED 00:21
DX: F15.10 Other stimulant abuse, uncomplicated (principal); F17.210 Nicotine dependence, cigarettes, uncomplicated; Z20.828 Contact with and (suspected) exposure to other viral communicable diseases
CPT/HCPCS: 36415; 80053; 80305-QW; 80307; 81001; 85025; 93005; 99282; 99284-25; U0002

== ENCOUNTER 2020-04-19 22:49 | Emergency (ER) | payer MEDICAID ==
[2020-04-19] MEDS ORDERED: LORazepam 1 MG Tab PO ONE (23:13)
[2020-04-19 23:14] VITALS: BP 106/47; PULSE 84
--- NOTE | 2020-04-19 23:17 | EDM.PDOCBH ---
ED HPI GENERAL MEDICAL PROBLEM - General Chief Complaint: Behavioral/Psych Time Seen by Provider: 04/19/20 23:15 Source of Information: Reports: Patient History Limitations: Reports: No Limitations - History of Present Illness INITIAL COMMENTS - FREE TEXT/NARRATIVE: c/o feeling shaky and chest feels funny and headache and had this before and was seen here. pt admits to meth yesterday but denies today Headache Pain Score (Numeric/FACES): 3 - Related Data Allergies Allergy/AdvReac Type Severity Reaction Status Date / Time No Known Allergies Allergy Verified 04/11/20 00:28 Home Meds: Home Meds . 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: Musculoskeletal History: Reports: None Neurological History: Reports: None Psychiatric History: Reports: Anxiety, Depression Endocrine/Metabolic History: Reports: None Hematologic History: Reports: Anemia Immunologic History: Reports: None Oncologic (Cancer) History: Reports: None Dermatologic History: Reports: None - Infectious Disease History Infectious Disease History: Reports: Other (See Below) Other Infectious Disease History: covid - Past Surgical History Head Surgeries/Procedures: Reports: None HEENT Surgical History: Reports: Oral Surgery GI Surgical History: Reports: Cholecystectomy Female Surgical History: Reports: Section Social & Family History - Family History Family Medical History: Noncontributory - Caffeine Use Caffeine Use: Reports: Coffee - Living Situation & Occupation Living situation: Reports: with Family ED ROS GENERAL - Review of Systems Review Of Systems: Comprehensive ROS is negative, except as noted in HPI. ED EXAM, BEHAVIORAL HEALTH - Physical Exam Exam: See Below Exam Limited By: No Limitations General Appearance: Alert, WD/WN, Anxious, Mild Distress Eye Exam: Bilateral Eye: PERRL (pupils ER @ 4mm) Ears: Hearing Grossly Normal Throat/Mouth: Normal Voice, No Airway Compromise Head: Atraumatic Neck: Non-Tender, Full Range of Motion Respiratory/Chest: No Respiratory Distress Cardiovascular: Regular Rate, Rhythm GI/Abdominal: Soft, Non-Tender (Female) Exam: Deferred Rectal (Female) Exam: Deferred Neurological: Alert, Normal Cognition, Normal Gait, No Motor/Sensory Deficits, Oriented x 3 Psychiatric: Alert, Normal Cognition, Oriented, Flat Affect Skin Exam: Warm, Dry, Normal color COURSE, BEHAVIORAL HEALTH COMP - Course Vital Signs: Last Vital Signs Temp 37.4 C 04/19/20 23:10 Pulse 84 04/19/20 23:10 Resp 16 04/19/20 23:10 BP 106/47 L 04/19/20 23:10 Pulse Ox 100 04/19/20 23:10 Orders, Labs, Meds: Laboratory Tests 04/19/20 04/19/20 04/19/20 Range/Units 23:04 23:04 23:04 WBC (5.0-10.0) 10^3/uL RBC (4.2-5.4) 10^6/uL Hgb (12.0-16.0) g/dL Hct (37.0-47.0) % MCV (80-100) fL MCH (27.0-34.0) pg MCHC (33.0-35.0) g/dL Plt Count (150-450) 10^3/uL Neut % (Auto) (42.2-75.2) % Lymph % (Auto) (20.5-50.1) % [place] % (Auto) (2-8) % Eos % (Auto) (1.0-3.0) % Baso % (Auto) (0.0-1.0) % Sodium (136-145) mmol/L Potassium (3.5-5.1) mmol/L Chloride (98-107) mmol/L Carbon Dioxide (21-32) mmol/L Anion Gap (7-13) mEq/L BUN (7-18) mg/dL Creatinine (0.55-1.02) mg/dL Est Cr Clr Drug Dosing mL/min Estimated GFR (MDRD) BUN/Creatinine Ratio (No establ ref range) Glucose (74-99) mg/dL Calcium (8.5-10.1) mg/dL Total Bilirubin (0.2-1.0) mg/dL AST (15-37) U/L ALT (14-59) U/L Alkaline Phosphatase (46-116) U/L Total Protein (6.4-8.2) g/dL Albumin (3.4-5.0) g/dL Globulin Albumin/Globulin Ratio Urine Color Yellow (YELLOW) Urine Appearance Clear (CLEAR) Urine pH 6.0 (5.0-9.0) Ur Specific [place] >= 1.030 (1.005-1.030) Urine Protein Negative (NEGATIVE) Urine Glucose (UA) Negative (NEGATIVE) Urine Ketones 80 H (NEGATIVE) Urine Occult Blood Negative (NEGATIVE) Urine Nitrite Negative (NEGATIVE) Urine Bilirubin Negative (NEGATIVE) Urine Urobilinogen 1.0 (0.2-1.0) mg/dL Ur Leukocyte Esterase Negative (NEGATIVE) Urine HCG, Qual Negative Urine Opiates Screen Negative (NEGATIVE) Ur Oxycodone Screen Negative (NEGATIVE) Urine Methadone Screen Negative (NEGATIVE) Ur Barbiturates Screen Negative (NEGATIVE) U Tricyclic Antidepress Negative (NEGATIVE) Ur Phencyclidine Scrn Negative (NEGATIVE) Ur Amphetamine Screen Positive H (NEGATIVE) U Methamphetamines Scrn Positive H (NEGATIVE) Urine MDMA Screen Positive H (NEGATIVE) U Benzodiazepines Scrn Negative (NEGATIVE) Urine Cocaine Screen Negative (NEGATIVE) U Marijuana (THC) Screen Negative (NEGATIVE) Ethyl Alcohol (0) mg/dL 04/19/20 04/19/20 Range/Units 23:22 23:22 WBC 7.3 (5.0-10.0) 10^3/uL RBC 4.84 (4.2-5.4) 10^6/uL Hgb 13.7 D (12.0-16.0) g/dL Hct 41.3 (37.0-47.0) % MCV 85.3 (80-100) fL MCH 28.3 (27.0-34.0) pg MCHC 33.2 (33.0-35.0) g/dL Plt Count 304 (150-450) 10^3/uL Neut % (Auto) 65.1 (42.2-75.2) % Lymph % (Auto) 24.6 (20.5-50.1) % [place] % (Auto) 9.2 H (2-8) % Eos % (Auto) 0.8 L (1.0-3.0) % Baso % (Auto) 0.3 (0.0-1.0) % Sodium 138 (136-145) mmol/L Potassium 4.8 (3.5-5.1) mmol/L Chloride 101 (98-107) mmol/L Carbon Dioxide 29 (21-32) mmol/L Anion Gap 12.8 (7-13) mEq/L BUN 8 (7-18) mg/dL Creatinine 0.71 (0.55-1.02) mg/dL Est Cr Clr Drug Dosing 101.41 mL/min Estimated GFR (MDRD) > 60 BUN/Creatinine Ratio 11.3 (No establ ref range) Glucose 98 (74-99) mg/dL Calcium 9.4 (8.5-10.1) mg/dL Total Bilirubin 0.9 (0.2-1.0) mg/dL AST 14 L (15-37) U/L ALT 23 (14-59) U/L Alkaline Phosphatase 98 (46-116) U/L Total Protein 7.6 (6.4-8.2) g/dL Albumin 4.0 (3.4-5.0) g/dL Globulin 3.6 Albumin/Globulin Ratio 1.1 Urine Color (YELLOW) Urine Appearance (CLEAR) Urine pH (5.0-9.0) Ur Specific [place] (1.005-1.030) Urine Protein (NEGATIVE) Urine Glucose (UA) (NEGATIVE) Urine Ketones (NEGATIVE) Urine Occult Blood (NEGATIVE) Urine Nitrite (NEGATIVE) Urine Bilirubin (NEGATIVE) Urine Urobilinogen (0.2-1.0) mg/dL Ur Leukocyte Esterase (NEGATIVE) Urine HCG, Qual Urine Opiates Screen (NEGATIVE) Ur Oxycodone Screen (NEGATIVE) Urine Methadone Screen (NEGATIVE) Ur Barbiturates Screen (NEGATIVE) U Tricyclic Antidepress (NEGATIVE) Ur Phencyclidine Scrn (NEGATIVE) Ur Amphetamine Screen (NEGATIVE) U Methamphetamines Scrn (NEGATIVE) Urine MDMA Screen (NEGATIVE) U Benzodiazepines Scrn (NEGATIVE) Urine Cocaine Screen (NEGATIVE) U Marijuana (THC) Screen (NEGATIVE) Ethyl Alcohol < 3 (0) mg/dL Medications Discontinued Medications Generic Name Dose Route Start Last Admin Trade Name Freq PRN Reason Stop Dose Admin Lorazepam 1 mg 04/19/20 23:13 04/19/20 23:19 Ativan PO 04/19/20 23:14 1 mg ONETIME ONE Administration Re-Assessment/Re-Exam: results discussed with pt over persistent pos meth Departure - Departure Time of Disposition: 00:18 Disposition: Home, Self-Care 01 Condition: Good Clinical Impression: Polysubstance abuse, Anxiety - Discharge Information Forms: ED Department Discharge Additional Instructions: 1) follow up at clinic 2) avoid meth usage Sepsis Event Note (ED) - Evaluation Sepsis Screening Result: No Definite Risk - Focused Exam Vital Signs: Vital Signs Temp Pulse Resp BP Pulse Ox 04/19/20 23:10 37.4 C 84 16 106/47 L 100
[2020-04-19 23:47] LABS: ANION GAP 12.8 mEq/L (7-13); CHLORIDE,CL 101 mmol/L (98-107); SODIUM,NA 138 mmol/L (136-145)
== END 2020-04-20 00:23 | disposition home or self-care (01) ==
LOC: DL.ED 22:49
DX: F19.10 Other psychoactive substance abuse, uncomplicated (principal); F41.9 Anxiety disorder, unspecified
CPT/HCPCS: 36415; 80053; 80305; 80307; 81003; 81025; 85025; 99284; A9270; 99283

== ENCOUNTER 2020-05-03 01:28 | Emergency (ER) | payer MEDICAID ==
[2020-05-03 01:49] VITALS: BP 128/66; PULSE 87
--- NOTE | 2020-05-03 02:08 | EDM.PDOC ---
ED HPI GENERAL MEDICAL PROBLEM - General Chief Complaint: Behavioral/Psych Stated Complaint: AMBULANCE Time Seen by Provider: 05/03/20 01:50 Source of Information: Reports: Patient, EMS - History of Present Illness INITIAL COMMENTS - FREE TEXT/NARRATIVE: This 35 yo female patient was brought to the ED by [facility] due to altered mentation. The patient's family reports to EMS that the patient was talking abo ut different things and not making sense. The patient reports she has been having pain in her head all day. The patient reports that she feels like something "popped" in her head just before the ambulance picked her up. The patient then reports that she has had pain in her lower abdomen and that she has had blood in her urine just before the ambulance picked her up. Then the patient reported that she has been having pain to her left chest, but currently has no pain in that area. The patient reports she last used methamphetamines 2-3 days ago. The patient denies any other drugs or alcohol. This patient has been seen 4 times in the past month due to different complaints. Onset: Unknown/Unsure Duration: Intermittent Location: Reports: Head, Chest, Abdomen Quality: Reports: Other Severity: Moderate Improves with: Reports: None Worsens with: Reports: None Context: Reports: Other Associated Symptoms: Reports: Chest Pain, Headaches, Other Treatments [employer]IM[employer]SEM[employer]ER: Reports: NSAIDS - Related Data Allergies Allergy/AdvReac Type Severity Reaction Status Date / Time No Known Allergies Allergy Verified 05/03/20 01:50 Home Meds: Home Meds . 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: Musculoskeletal History: Reports: None Neurological History: Reports: None Psychiatric History: Reports: Anxiety, Depression Endocrine/Metabolic History: Reports: None Hematologic History: Reports: Anemia Immunologic History: Reports: None Oncologic (Cancer) History: Reports: None Dermatologic History: Reports: None - Infectious Disease History Infectious Disease History: Reports: Other (See Below) Other Infectious Disease History: covid - Past Surgical History Head Surgeries/Procedures: Reports: None HEENT Surgical History: Reports: Oral Surgery GI Surgical History: Reports: Cholecystectomy Female Surgical History: Reports: Section Social & Family History - Family History Family Medical History: Noncontributory - Tobacco Use Tobacco Use Status *Q: Current Every Day Tobacco User Years of Tobacco use: 13 Packs/Tins Daily: 1 - Caffeine Use Caffeine Use: Reports: Soda - Recreational Drug Use Recreational Drug Use: Yes Drug Use in Last 12 Months: Yes Recreational Drug Use Frequency: Patient Refuses To Answer - Living Situation & Occupation Living situation: Reports: with Family ED ROS GENERAL - Review of Systems Review Of Systems: Comprehensive ROS is negative, except as noted in HPI. ED EXAM, GENERAL - Physical Exam Exam: See Below Exam Limited By: No Limitations General Appearance: Alert, Moderate Distress Eye Exam: Bilateral Eye: EOMI, Normal Inspection, PERRL Ears: Normal External Exam, Normal Canal, Hearing Grossly Normal, Normal TMs Nose: Normal Inspection, Normal Mucosa, No Blood Throat/Mouth: Normal Inspection, Normal Lips, Normal Teeth, Normal Gums, Normal Oropharynx, Normal Voice, No Airway Compromise Head: Atraumatic, Normocephalic Neck: Normal Inspection, Supple, Non-Tender, Full Range of Motion Respiratory/Chest: No Respiratory Distress, Lungs Clear, Normal Breath Sounds, No Accessory Muscle Use, Chest Non-Tender Cardiovascular: Normal Peripheral Pulses, Regular Rate, Rhythm, No Edema, No Gallop, No JVD, No Murmur, No Rub GI/Abdominal: Normal Bowel Sounds, Soft, Non-Tender, No Organomegaly, No Disten tion, No Abnormal Bruit, No Mass, Pelvis Stable (Female) Exam: Deferred Rectal (Female) Exam: Deferred Back Exam: Normal Inspection, Full Range of Motion, NT Extremities: Normal Inspection, Normal Range of Motion, Non-Tender, Normal Capillary Refill, No Pedal Edema Neurological: Alert, CN II-XII Intact, Normal Cognition, Normal Gait, Normal Reflexes, No Motor/Sensory Deficits Psychiatric: Flat Affect Skin Exam: Warm, Dry, Intact, Normal Color, No Rash Lymphatic: No Adenopathy Course - Vital Signs Last Recorded V/S: Last Vital Signs Temp 36.2 C 05/03/20 01:43 Pulse 87 05/03/20 01:43 Resp 17 05/03/20 01:43 BP 128/66 05/03/20 01:43 Pulse Ox 100 05/03/20 01:43 - Orders/Labs/Meds Orders: Active Orders 24 hr Category Date Time Status EKG Documentation Completion [RC] STAT Care 05/03/20 01:29 Active Ketorolac [Toradol] Med 05/03/20 02:47 Once 30 mg IVPUSH ONETIME ONE Medication Orders Ketorolac Tromethamine (Toradol) 30 mg IVPUSH ONETIME ONE Stop: 05/03/20 02:48 Labs: Laboratory Tests 05/03/20 05/03/20 05/03/20 Range/Units 01:41 01:41 01:41 WBC 9.0 (5.0-10.0) 10^3/uL RBC 4.32 (4.2-5.4) 10^6/uL Hgb 12.4 (12.0-16.0) g/dL Hct 36.6 L (37.0-47.0) % MCV 84.7 (80-100) fL MCH 28.7 (27.0-34.0) pg MCHC 33.9 (33.0-35.0) g/dL Plt Count 281 (150-450) 10^3/uL Neut % (Auto) 46.2 (42.2-75.2) % Lymph % (Auto) 42.6 (20.5-50.1) % [place] % (Auto) 6.9 (2-8) % Eos % (Auto) 4.1 H (1.0-3.0) % Baso % (Auto) 0.2 (0.0-1.0) % Sodium 140 (136-145) mmol/L Potassium 3.7 (3.5-5.1) mmol/L Chloride 106 (98-107) mmol/L Carbon Dioxide 26 (21-32) mmol/L Anion Gap 11.7 (7-13) mEq/L BUN 6 L (7-18) mg/dL Creatinine 0.68 (0.55-1.02) mg/dL Est Cr Clr Drug Dosing TNP Estimated GFR (MDRD) > 60 BUN/Creatinine Ratio 8.8 (No establ ref range) Glucose 101 H (74-99) mg/dL Calcium 8.5 (8.5-10.1) mg/dL Magnesium 2.3 (1.8-2.4) mg/dL Total Bilirubin 0.7 (0.2-1.0) mg/dL AST 16 (15-37) U/L ALT 20 (14-59) U/L Alkaline Phosphatase 99 (46-116) U/L Ammonia 18 (11-32) umol/L Troponin I < 0.017 (0.000-0.056) ng/mL Total Protein 6.3 L (6.4-8.2) g/dL Albumin 3.4 (3.4-5.0) g/dL Globulin 2.9 Albumin/Globulin Ratio 1.2 Amylase 45 (25-115) U/L Lipase 122 (73-393) U/L Urine Color (YELLOW) Urine Appearance (CLEAR) Urine pH (5.0-9.0) Ur Specific [place] (1.005-1.030) Urine Protein (NEGATIVE) Urine Glucose (UA) (NEGATIVE) Urine Ketones (NEGATIVE) Urine Occult Blood (NEGATIVE) Urine Nitrite (NEGATIVE) Urine Bilirubin (NEGATIVE) Urine Urobilinogen (0.2-1.0) mg/dL Ur Leukocyte Esterase (NEGATIVE) Urine RBC /HPF Urine WBC (0-5/HPF) /HPF Ur Epithelial Cells (NOT SEEN) /HPF Amorphous Sediment (NOT SEEN) /HPF Urine Bacteria (0-FEW/HPF) /HPF Urine Mucus (NOT SEEN) /LPF Urine HCG, Qual Salicylates (2.8-20(Therapeutic)) mg/dL Urine Opiates Screen (NEGATIVE) Ur Oxycodone Screen (NEGATIVE) Urine Methadone Screen (NEGATIVE) Acetaminophen 0 L (10-30 (Therapeutic)) ug/mL Ur Barbiturates Screen (NEGATIVE) U Tricyclic Antidepress (NEGATIVE) Ur Phencyclidine Scrn (NEGATIVE) Ur Amphetamine Screen (NEGATIVE) U Methamphetamines Scrn (NEGATIVE) Urine MDMA Screen (NEGATIVE) U Benzodiazepines Scrn (NEGATIVE) Urine Cocaine Screen (NEGATIVE) U Marijuana (THC) Screen (NEGATIVE) Ethyl Alcohol < 3 (0) mg/dL 05/03/20 05/03/20 05/03/20 Range/Units 01:41 02:09 02:09 WBC (5.0-10.0) 10^3/uL RBC (4.2-5.4) 10^6/uL Hgb (12.0-16.0) g/dL Hct (37.0-47.0) % MCV (80-100) fL MCH (27.0-34.0) pg MCHC (33.0-35.0) g/dL Plt Count (150-450) 10^3/uL Neut % (Auto) (42.2-75.2) % Lymph % (Auto) (20.5-50.1) % [place] % (Auto) (2-8) % Eos % (Auto) (1.0-3.0) % Baso % (Auto) (0.0-1.0) % Sodium (136-145) mmol/L Potassium (3.5-5.1) mmol/L Chloride (98-107) mmol/L Carbon Dioxide (21-32) mmol/L Anion Gap (7-13) mEq/L BUN (7-18) mg/dL Creatinine (0.55-1.02) mg/dL Est Cr Clr Drug Dosing Estimated GFR (MDRD) BUN/Creatinine Ratio (No establ ref range) Glucose (74-99) mg/dL Calcium (8.5-10.1) mg/dL Magnesium (1.8-2.4) mg/dL Total Bilirubin (0.2-1.0) mg/dL AST (15-37) U/L ALT (14-59) U/L Alkaline Phosphatase (46-116) U/L Ammonia (11-32) umol/L Troponin I (0.000-0.056) ng/mL Total Protein (6.4-8.2) g/dL Albumin (3.4-5.0) g/dL Globulin Albumin/Globulin Ratio Amylase (25-115) U/L Lipase (73-393) U/L Urine Color Red (YELLOW) Urine Appearance Cloudy (CLEAR) Urine pH 5.5 (5.0-9.0) Ur Specific [place] 1.020 (1.005-1.030) Urine Protein 100 H (NEGATIVE) Urine Glucose (UA) Negative (NEGATIVE) Urine Ketones Negative (NEGATIVE) Urine Occult Blood Large H (NEGATIVE) Urine Nitrite Negative (NEGATIVE) Urine Bilirubin Negative (NEGATIVE) Urine Urobilinogen 0.2 (0.2-1.0) mg/dL Ur Leukocyte Esterase Negative (NEGATIVE) Urine RBC >100 H /HPF Urine WBC 0-5 (0-5/HPF) /HPF Ur Epithelial Cells Few (NOT SEEN) /HPF Amorphous Sediment Moderate H (NOT SEEN) /HPF Urine Bacteria Rare (0-FEW/HPF) /HPF Urine Mucus Few H (NOT SEEN) /LPF Urine HCG, Qual Negative Salicylates < 2.8 L (2.8-20(Therapeutic)) mg/dL Urine Opiates Screen (NEGATIVE) Ur Oxycodone Screen (NEGATIVE) Urine Methadone Screen (NEGATIVE) Acetaminophen (10-30 (Therapeutic)) ug/mL Ur Barbiturates Screen (NEGATIVE) U Tricyclic Antidepress (NEGATIVE) Ur Phencyclidine Scrn (NEGATIVE) Ur Amphetamine Screen (NEGATIVE) U Methamphetamines Scrn (NEGATIVE) Urine MDMA Screen (NEGATIVE) U Benzodiazepines Scrn (NEGATIVE) Urine Cocaine Screen (NEGATIVE) U Marijuana (THC) Screen (NEGATIVE) Ethyl Alcohol (0) mg/dL 05/03/20 Range/Units 02:09 WBC (5.0-10.0) 10^3/uL RBC (4.2-5.4) 10^6/uL Hgb (12.0-16.0) g/dL Hct (37.0-47.0) % MCV (80-100) fL MCH (27.0-34.0) pg MCHC (33.0-35.0) g/dL Plt Count (150-450) 10^3/uL Neut % (Auto) (42.2-75.2) % Lymph % (Auto) (20.5-50.1) % [place] % (Auto) (2-8) % Eos % (Auto) (1.0-3.0) % Baso % (Auto) (0.0-1.0) % Sodium (136-145) mmol/L Potassium (3.5-5.1) mmol/L Chloride (98-107) mmol/L Carbon Dioxide (21-32) mmol/L Anion Gap (7-13) mEq/L BUN (7-18) mg/dL Creatinine (0.55-1.02) mg/dL Est Cr Clr Drug Dosing Estimated GFR (MDRD) BUN/Creatinine Ratio (No establ ref range) Glucose (74-99) mg/dL Calcium (8.5-10.1) mg/dL Magnesium (1.8-2.4) mg/dL Total Bilirubin (0.2-1.0) mg/dL AST (15-37) U/L ALT (14-59) U/L Alkaline Phosphatase (46-116) U/L Ammonia (11-32) umol/L Troponin I (0.000-0.056) ng/mL Total Protein (6.4-8.2) g/dL Albumin (3.4-5.0) g/dL Globulin Albumin/Globulin Ratio Amylase (25-115) U/L Lipase (73-393) U/L Urine Color (YELLOW) Urine Appearance (CLEAR) Urine pH (5.0-9.0) Ur Specific [place] (1.005-1.030) Urine Protein (NEGATIVE) Urine Glucose (UA) (NEGATIVE) Urine Ketones (NEGATIVE) Urine Occult Blood (NEGATIVE) Urine Nitrite (NEGATIVE) Urine Bilirubin (NEGATIVE) Urine Urobilinogen (0.2-1.0) mg/dL Ur Leukocyte Esterase (NEGATIVE) Urine RBC /HPF Urine WBC (0-5/HPF) /HPF Ur Epithelial Cells (NOT SEEN) /HPF Amorphous Sediment (NOT SEEN) /HPF Urine Bacteria (0-FEW/HPF) /HPF Urine Mucus (NOT SEEN) /LPF Urine HCG, Qual Salicylates (2.8-20(Therapeutic)) mg/dL Urine Opiates Screen Negative (NEGATIVE) Ur Oxycodone Screen Negative (NEGATIVE) Urine Methadone Screen Negative (NEGATIVE) Acetaminophen (10-30 (Therapeutic)) ug/mL Ur Barbiturates Screen Negative (NEGATIVE) U Tricyclic Antidepress Negative (NEGATIVE) Ur Phencyclidine Scrn Negative (NEGATIVE) Ur Amphetamine Screen Negative (NEGATIVE) U Methamphetamines Scrn Positive H (NEGATIVE) Urine MDMA Screen Negative (NEGATIVE) U Benzodiazepines Scrn Negative (NEGATIVE) Urine Cocaine Screen Negative (NEGATIVE) U Marijuana (THC) Screen Negative (NEGATIVE) Ethyl Alcohol (0) mg/dL Meds: Medications Generic Name Dose Route Start Last Admin Trade Name Freq PRN Reason Stop Dose Admin Ketorolac Tromethamine 30 mg 05/03/20 02:47 Toradol IVPUSH 05/03/20 02:48 ONETIME ONE Departure - Departure Time of Disposition: 02:48 Disposition: Home, Self-Care 01 Condition: Fair Clinical Impression: Generalized headaches, Methamphetamine abuse - Discharge Information *PRESCRIPTION DRUG MONITORING PROGRAM REVIEWED*: Not Applicable *COPY OF PRESCRIPTION DRUG MONITORING REPORT IN PATIENT NANCY: Not Applicable Instructions: Methamphetamines Use Disorder, Tension Headache, Adult Forms: ED Department Discharge Care Plan Goals: The patient was advised of the examination, lab, EKG and head CT results during the visit. The patient was given an IV dose of Toradol for her headache. The patient was encouraged to avoid methamphetamine use. The patient may take Tylenol or ibuprofen as directed for temporary symptom relief. If the patient has any additional symptoms or concerns, the patient should either return to the emergency department or visit her primary care facility. Sepsis Event Note (ED) - Evaluation Sepsis Screening Result: No Definite Risk - Focused Exam Vital Signs: Vital Signs Temp Pulse Resp BP Pulse Ox 05/03/20 01:43 36.2 C 87 17 128/66 100 - My Orders Last 24 Hours: My Active Orders 05/03/20 01:29 EKG Documentation Completion [RC] STAT 05/03/20 02:47 Ketorolac [Toradol] 30 mg IVPUSH ONETIME ONE - Assessment/Plan Last 24 Hours: My Active Orders 05/03/20 01:29 EKG Documentation Completion [RC] STAT 05/03/20 02:47 Ketorolac [Toradol] 30 mg IVPUSH ONETIME ONE
[2020-05-03 02:10] LABS: ANION GAP 11.7 mEq/L (7-13); CHLORIDE,CL 106 mmol/L (98-107); SODIUM,NA 140 mmol/L (136-145)
[2020-05-03 02:11] LABS: ACETAMINOPHEN 0 ug/mL (10-30 (Therapeutic))
--- NOTE | 2020-05-03 02:39 | CT ---
PROCEDURE INFORMATION: Exam: CT Head Without Contrast Exam date and time: 05/03/2020 1:41 AM Age: 35 years old Clinical indication: Altered mental status/memory loss; Confusion or disorientation; Additional info: Altered mentation TECHNIQUE: Imaging protocol: Computed tomography of the head without contrast. Radiation optimization: All CT scans at this facility use at least one of these dose optimization techniques: automated exposure control; mA and/or kV adjustment per patient size (includes targeted exams where dose is matched to clinical indication); or iterative reconstruction. COMPARISON: CT Head wo Cont 02/16/2018 8:32 PM FINDINGS: Brain: No intracranial bleed. No extra-axial fluid collection. The brain density is normal without mass. Gordon white differentiation is preserved. No edema. Cerebral ventricles: The ventricles are normal in size and shape without midline shift. Bones/joints: The visualized bones are intact without fracture or focal lesion. Paranasal sinuses: The sinuses are well aerated and clear. Mastoid air cells: The mastoids are well aerated and clear. Soft tissues: The visualized soft tissues appear unremarkable. IMPRESSION: No acute intracranial changes are evident.
[2020-05-03] MEDS ORDERED: Ketorolac 30 MG/ML SDV IVPUSH ONE (02:47)
== END 2020-05-03 03:10 | disposition home or self-care (01) ==
LOC: DL.ED 01:28
DX: R51.9 Headache, unspecified (principal); F15.10 Other stimulant abuse, uncomplicated; R10.30 Lower abdominal pain, unspecified; R31.9 Hematuria, unspecified; R07.9 Chest pain, unspecified; F17.210 Nicotine dependence, cigarettes, uncomplicated; Z90.49 Acquired absence of other specified parts of digestive tract
CPT/HCPCS: 36415; 70450; 80053; 80305; 80307; 81001; 81025; 82140; 82150; 83690; 83735; 84484; 85025; 93005; 96374; 99285; J1885

== ENCOUNTER 2021-07-25 18:53 | Inpatient (IN) | payer MEDICAID ==
[2021-07-25] MEDS: Sodium Chloride 0.9% 1,000 ML IV ONE ×2 (20:03→21:29)
[2021-07-25] MEDS: Ondansetron 4 MG/2 ML SDV IVPUSH ONE ×2 (20:05→21:27)
[2021-07-25 20:28] LABS: CORONAVIRUS COVID-19 NAA POSITIVE (NEGATIVE)
[2021-07-25 20:55] LABS: AMPHETAMINES,URINE NEGATIVE (NEGATIVE); BARBITURATES,URINE NEGATIVE (NEGATIVE); BENZODIAZEPINE,URINE NEGATIVE (NEGATIVE); MDMA (ECSTASY), URINE NEGATIVE (NEGATIVE); METHADONE,URINE NEGATIVE (NEGATIVE); METHAMPHETAMINES,URINE POSITIVE (NEGATIVE); OPIATES,URINE NEGATIVE (NEGATIVE); OXYCODONE,URINE NEGATIVE (NEGATIVE); PHENCYCLIDINE,URINE NEGATIVE (NEGATIVE); TCA,URINE NEGATIVE (NEGATIVE)
[2021-07-25 21:44] LABS: ANION GAP 11.3 mEq/L (7-13); CHLORIDE,CL 97 mmol/L (98-107); SODIUM,NA 129 mmol/L (136-145)
[2021-07-25] MEDS ORDERED: Iopamidol 755 Mg/ML 100 ML Bottle IVPUSH ONE (21:48)
[2021-07-25] MEDS ORDERED: Acetaminophen 325 MG Tab PO ONE (22:30)
[2021-07-25] MEDS ORDERED: Piperacillin/Tazobactam 3.375 GM in Sodium Chloride 0.9% 100 ML IV ONE (22:30)
[2021-07-26] MEDS ORDERED: Acetaminophen 325 MG Tab PO ONE (02:21)
[2021-07-26] MEDS ORDERED: Piperacillin/Tazobactam 3.375 GM in Sodium Chloride 0.9% 100 ML IV ONE (07:29)
[2021-07-26] MEDS ORDERED: Docusate Sodium 100 MG Cap PO PRN (10:32)
[2021-07-26] MEDS ORDERED: Acetaminophen 325 MG Tab PO PRN (10:32)
[2021-07-26] MEDS ORDERED: Ondansetron 4 MG/2 ML SDV IVPUSH PRN (10:32)
[2021-07-26] MEDS ORDERED: Sodium Chloride 0.9% 1,000 ML IV ONE (10:45)
[2021-07-26] MEDS ORDERED: Enoxaparin 40 MG/0.4 ML Syringe SUBCUT SCH (10:45)
[2021-07-26] MEDS ORDERED: Sodium Chloride 0.9% 1,000 ML IV SCH (10:45)
[2021-07-26] MEDS ORDERED: REMDESIVIR 200 MG in Sodium Chloride 0.9% 250 ML IV ONE (11:00)
[2021-07-26] MEDS ORDERED: Water For Injection, Sterile 40 ML ONE (11:37)
[2021-07-26] MEDS: oxyCODONE 5 MG Tab PO PRN ×3 (12:24→20:54)
[2021-07-26] MEDS: Piperacillin/Tazobactam 4.5 GM in Sodium Chloride 0.9% 100 ML IV SCH ×2 (15:03→19:50)
[2021-07-26] MEDS ORDERED: HYDROmorphone 1 MG/ML Syringe IVPUSH PRN (18:15)
[2021-07-26 19:54] VITALS: PULSE 88
[2021-07-26 22:05] VITALS: BP 100/57
[2021-07-27] MEDS ORDERED: REMDESIVIR 100 MG in Sodium Chloride 0.9% 100 ML IV SCH (11:00)
== END 2021-07-26 21:05 | DRG 871 ==
LOC: DL.ED 18:53 → DL.MS 07-26 10:30
PROVIDERS: ADMIT Internal Medicine; ATTEND Internal Medicine
PROC: XW033E5 Introduction of Remdesivir Anti-infective into Peripheral Vein, Percutaneous Approach, New Technology Group 5 (ICD-10-PCS; principal; 2021-07-26)
DX: A41.9 Sepsis, unspecified organism (principal); I26.90 Septic pulmonary embolism without acute cor pulmonale; U07.1 COVID-19; F17.200 Nicotine dependence, unspecified, uncomplicated; F41.9 Anxiety disorder, unspecified; F32.A Depression, unspecified; Z90.49 Acquired absence of other specified parts of digestive tract
CPT/HCPCS: 0240U; 36415; 71250; 80053; 80305-QW; 81001; 82140; 82150; 83605; 83690; 83735; 84703; 85025; 85379; 86140; 87040; 87086; 93005; 93010; 96365; 96366; 96367; 96368; 96375; 99284; 99285-25; A9270-GY; J1170; J1650; J2405; J2543; J3370; J7030; J7050

== ENCOUNTER 2021-11-08 17:32 | Emergency (ER) | payer MEDICAID ==
[2021-11-08] MEDS ORDERED: Sodium Chloride 0.9% 1,000 ML IV ONE (17:46)
[2021-11-08] MEDS ORDERED: Sodium Chloride 0.9% 10 ML Syringe FLUSH PRN (17:46)
[2021-11-08] MEDS ORDERED: HYDROmorphone 0.5 MG/0.5 ML Syringe IVPUSH ONE (17:46)
[2021-11-08] MEDS ORDERED: Ondansetron 4 MG/2 ML SDV IVPUSH ONE (17:46)
[2021-11-08 18:20] LABS: AMPHETAMINES,URINE NEGATIVE (NEGATIVE); BARBITURATES,URINE NEGATIVE (NEGATIVE); BENZODIAZEPINE,URINE NEGATIVE (NEGATIVE); MDMA (ECSTASY), URINE NEGATIVE (NEGATIVE); METHADONE,URINE NEGATIVE (NEGATIVE); METHAMPHETAMINES,URINE NEGATIVE (NEGATIVE); OPIATES,URINE NEGATIVE (NEGATIVE); PHENCYCLIDINE,URINE NEGATIVE (NEGATIVE); TCA,URINE NEGATIVE (NEGATIVE)
[2021-11-08 18:21] LABS: OXYCODONE,URINE NEGATIVE (NEGATIVE)
[2021-11-08] MEDS ORDERED: Ketorolac 30 MG/ML SDV IM ONE (18:29)
[2021-11-08 19:38] LABS: CORONAVIRUS COVID-19 NAA NEGATIVE (NEGATIVE)
[2021-11-08] MEDS ORDERED: diphenhydrAMINE 50 MG/ML SDV IM ONE (19:38)
[2021-11-08] MEDS ORDERED: Prochlorperazine 5 MG Tab PO ONE (19:38)
[2021-11-08 19:59] VITALS: BP 122/54; PULSE 101
[2021-11-08 20:10] LABS: ANION GAP 16.8 mEq/L (7-13); CHLORIDE,CL 104 mmol/L (98-107); SODIUM,NA 142 mmol/L (136-145)
[2021-11-08] MEDS ORDERED: cefTRIAXone 1 GM, Lidocaine 1% 2.1 ML IM ONE ×2 (22:07)
== END 2021-11-08 22:40 | disposition home or self-care (01) ==
LOC: DL.ED 17:32
DX: J32.9 Chronic sinusitis, unspecified (principal); Z20.822 Contact with and (suspected) exposure to COVID-19
CPT/HCPCS: 0240U; 36415; 70450; 80053; 80305-QW; 80307; 81001; 83605; 84703; 85025; 85610; 86140; 87077; 87086; 96372; 96374; 99284; 99284-25; J0696; J1200; J1885; Q0164

== ENCOUNTER 2024-02-09 01:32 | Emergency (ER) | payer MEDICAID ==
[2024-02-09 00:48] VITALS: BP 123/50; PULSE 82
[2024-02-09] MEDS: Sodium Chloride 0.9% 1,000 ML IV ONE (00:53)
[2024-02-09] MEDS: Ondansetron 4 MG/2 ML SDV IVPUSH ONE (00:54)
[2024-02-09] MEDS: Famotidine 20 MG/2 ML SDV IVPUSH ONE (00:55)
[2024-02-09 01:11] LABS: BASOPHILS PERCENT AUTO 0.1 % (0.0-1.0); HEMATOCRIT 37.4 % (37.0-47.0); HEMOGLOBIN 12.2 g/dL (12.0-16.0); LYMPHOCYTES PERCENT AUTO 19.6 % (20.5-50.1); MEAN CORPUSCULAR HEMOGLOBIN 25.8 pg (27.0-34.0); MEAN CORPUSCULAR HGB CONC 32.6 g/dL (33.0-35.0); MEAN CORPUSCULAR VOLUME 79.1 fL (80-100); MONOCYTES PERCENT AUTO 10.2 % (2-8); NEUTROPHILS PERCENT AUTO 69.1 % (42.2-75.2); PLATELET COUNT,PLT 235 10^3/uL (150-450); RED BLOOD CELL COUNT 4.73 10^6/uL (4.2-5.4); WHITE BLOOD CELL COUNT,WBC 9.4 10^3/uL (5.0-10.0)
[2024-02-09 01:13] LABS: APPEARANCE,URINE CLEAR (CLEAR); BILIRUBIN,URINE NEGATIVE (NEGATIVE); COLOR,URINE YELLOW (YELLOW); GLUCOSE,URINE NEGATIVE (NEGATIVE); KETONES,URINE NEGATIVE (NEGATIVE); LEUKOCYTE ESTERASE,URINE TRACE (NEGATIVE); NITRITE,URINE NEGATIVE (NEGATIVE); OCCULT BLOOD,URINE NEGATIVE (NEGATIVE); PH,URINE 6.5 (5.0-9.0); PROTEIN,URINE NEGATIVE (NEGATIVE); UROBILINOGEN,URINE 0.2 mg/dL (0.2-1.0)
[2024-02-09 01:17] LABS: AMPHETAMINES,URINE NEGATIVE (NEGATIVE); BARBITURATES,URINE NEGATIVE (NEGATIVE); BENZODIAZEPINE,URINE NEGATIVE (NEGATIVE); MDMA (ECSTASY), URINE NEGATIVE (NEGATIVE); METHADONE,URINE NEGATIVE (NEGATIVE); METHAMPHETAMINES,URINE NEGATIVE (NEGATIVE); OPIATES,URINE NEGATIVE (NEGATIVE); OXYCODONE,URINE NEGATIVE (NEGATIVE); PHENCYCLIDINE,URINE NEGATIVE (NEGATIVE); TCA,URINE NEGATIVE (NEGATIVE)
[2024-02-09 01:19] LABS: ALANINE AMINOTRANSFERASE,ALT 26 U/L (14-59); ALBUMIN 3.1 g/dL (3.4-5.0); ALKALINE PHOSPHATASE 93 U/L (46-116); ANION GAP 13.8 mEq/L (7-13); ASPARTATE AMNIOTRANSFERASE,AST 13 U/L (15-37); BILIRUBIN TOTAL 0.6 mg/dL (0.2-1.0); BLOOD UREA NITROGEN,BUN 6 mg/dL (7-18); BUN/CREATININE RATIO 8.2 (No establ ref range); CARBON DIOXIDE,CO2 24 mmol/L (21-32); CHLORIDE,CL 104 mmol/L (98-107); CREATININE 0.73 mg/dL (0.55-1.02); GLUCOSE RANDOM 98 mg/dL (70-99); LIPASE 57 U/L (16-77); MAGNESIUM 2.1 mg/dL (1.8-2.4); POTASSIUM,K 3.8 mmol/L (3.5-5.1); PROTEIN TOTAL,TP 6.8 g/dL (6.4-8.2); SODIUM,NA 138 mmol/L (136-145)
[2024-02-09 01:21] LABS: A/G RATIO 0.84; ESTIMATED GFR 109 mL/min (>=60); ETHANOL BLOOD MEDICAL < 3 mg/dL (0)
[2024-02-09 01:26] LABS: BACTERIA,URINE FEW /HPF (0-FEW/HPF); EPITHELIAL CELLS,URINE FEW /HPF (NOT SEEN); RBC,URINE 0-5 /HPF (0-5); WBC,URINE 0-5 /HPF (0-5/HPF)
[~2024-02-09 01:32] MED LIST: Iopamidol 612 MG/ML 100 ML Bottle IVPUSH ONE
== END 2024-02-09 02:53 | disposition home or self-care (01) ==
LOC: DL.ED 01:32
DX: O99.611 Diseases of the digestive system complicating pregnancy, first trimester (principal); O09.521 Supervision of elderly multigravida, first trimester; A08.4 Viral intestinal infection, unspecified; Z3A.00 Weeks of gestation of pregnancy not specified; Z86.16 Personal history of COVID-19; Z90.49 Acquired absence of other specified parts of digestive tract
CPT/HCPCS: 36415; 80053; 80305; 80307; 81001; 81025; 83690; 83735; 84702; 85025; 87086; 87635; 87804; 96361; 96374; 96375; 99283; 99285; J2405; J3490; J7030; U0002

== ENCOUNTER 2024-09-11 22:39 | Inpatient (IN) | payer MEDICAID ==
[2024-09-11] MEDS ORDERED: Sodium Chloride 0.9% 10 ML Syringe FLUSH PRN ×2 (23:22→23:35)
[2024-09-11] MEDS ORDERED: Tranexamic Acid 1,000 MG in Sodium Chloride 0.9% 100 ML IV PRN (23:35)
[2024-09-11] MEDS ORDERED: Oxytocin 10 Units/1 ML SDV IM PRN (23:35)
[2024-09-11] MEDS ORDERED: Carboprost Tromethamine 250 MCG/1 ML Amp IM PRN (23:35)
[2024-09-11] MEDS ORDERED: Oxytocin/Lactated Ringers 30 UNIT/500 ML BAG IV SCH (23:45)
[2024-09-11] MEDS ORDERED: Lactated Ringers 1,000 ML IV SCH ×2 (23:45)
[2024-09-12 00:01] LABS: HEMATOCRIT 34.3 % (37.0-47.0); HEMOGLOBIN 10.9 g/dL (12.0-16.0); MEAN CORPUSCULAR HGB CONC 31.8 g/dL (33.0-35.0); MEAN CORPUSCULAR VOLUME 84.9 fL (80-100); RED BLOOD CELL COUNT 4.04 10^6/uL (4.2-5.4); WHITE BLOOD CELL COUNT,WBC 9.4 10^3/uL (5.0-10.0)
[2024-09-12] MEDS ORDERED: fentaNYL 100 MCG/2 ML SDV ONE (00:56)
[2024-09-12] MEDS ORDERED: Morphine PF 10 MG/10 ML SDV ONE (00:57)
[2024-09-12] MEDS: ceFAZolin 1 GM Vial IVPUSH ONE (01:40)
[2024-09-12 01:55] LABS: AMPHETAMINES,URINE NEGATIVE (NEGATIVE); APPEARANCE,URINE CLEAR (CLEAR); BARBITURATES,URINE NEGATIVE (NEGATIVE); BENZODIAZEPINE,URINE NEGATIVE (NEGATIVE); BILIRUBIN,URINE NEGATIVE (NEGATIVE); COLOR,URINE YELLOW (YELLOW); GLUCOSE,URINE NEGATIVE (NEGATIVE); KETONES,URINE NEGATIVE (NEGATIVE); LEUKOCYTE ESTERASE,URINE NEGATIVE (NEGATIVE); MDMA (ECSTASY), URINE NEGATIVE (NEGATIVE); METHADONE,URINE NEGATIVE (NEGATIVE); METHAMPHETAMINES,URINE NEGATIVE (NEGATIVE); NITRITE,URINE NEGATIVE (NEGATIVE); OCCULT BLOOD,URINE NEGATIVE (NEGATIVE); OPIATES,URINE NEGATIVE (NEGATIVE); OXYCODONE,URINE NEGATIVE (NEGATIVE); PHENCYCLIDINE,URINE NEGATIVE (NEGATIVE); PROTEIN,URINE NEGATIVE (NEGATIVE); TCA,URINE NEGATIVE (NEGATIVE); UROBILINOGEN,URINE 0.2 mg/dL (0.2-1.0)
[2024-09-12] MEDS ORDERED: Oxytocin 10 Units/1 ML SDV ONE (03:19)
[2024-09-12] MEDS ORDERED: Ondansetron 4 MG/2 ML SDV ONE (03:22)
[2024-09-12] MEDS ORDERED: Dexamethasone 4 MG/ML SDV ONE (03:22)
[2024-09-12] MEDS ORDERED: Phenylephrine 1% 10 MG/ML SDV ONE (03:23)
[2024-09-12] MEDS ORDERED: Aluminum Hydroxide/Magnesium Hydroxide/Simethicone Susp 30 ML Cup PO PRN (04:50)
[2024-09-12] MEDS ORDERED: Zolpidem 5 MG Tab PO PRN (04:50)
[2024-09-12] MEDS ORDERED: Bisacodyl 10 MG Supp RECTAL PRN (04:50)
[2024-09-12] MEDS: Ketorolac 30 MG/ML SDV ONE (07:39)
[2024-09-12] MEDS: Simethicone 80 MG Tab.Chew PO PRN (08:39)
[2024-09-12] MEDS: Acetaminophen/oxyCODONE 325-5 MG Tab PO PRN (08:39)
[2024-09-12] MEDS: Docusate Sodium 100 MG Cap PO PRN (08:39)
[2024-09-12] MEDS ORDERED: Sodium Chloride 0.9% 10 ML Syringe FLUSH SCH (09:00)
[2024-09-12] MEDS: Ketorolac 30 MG/ML SDV IVPUSH SCH (09:35)
[2024-09-12] MEDS: Sodium Chloride 0.9% 10 ML Syringe FLUSH SCH (09:42)
[2024-09-12] MEDS: Acetaminophen 325 MG Tab PO PRN (12:16)
[2024-09-12] MEDS: ceFAZolin 2 GM Vial IVPUSH ONE (16:07)
[2024-09-12] MEDS: Methylergonovine 0.2 MG Tab PO PRN (16:35)
[2024-09-12] MEDS: Morphine 2 MG/ML SYRINGE IVPUSH ONE (16:35)
[2024-09-12] MEDS: Lactated Ringers 1,000 ML IV ONE (20:08)
[2024-09-13] MEDS: Ibuprofen 600 MG Tab PO PRN (05:40)
[2024-09-13] MEDS ORDERED: Ibuprofen 800 MG Tab PO SCH (06:00)
[2024-09-13] MEDS: Prenatal Multivitamin with Calcium/Folic Acid/Iron Tab PO SCH (09:23)
[2024-09-13 12:47] LABS: C.TRACHOMATIS BY TMA Negative (Negative); N.GONORRHOEAE BY TMA Negative (Negative); SOURCE GENITAL
[2024-09-13] MEDS: Prenatal Multivitamin with Calcium/Folic Acid/Iron Tab ONE (13:41)
[2024-09-13 17:09] LABS: ALBUMIN 1.9 g/dL (3.4-5.0); ANION GAP 11.1 mEq/L (7-13); BILIRUBIN TOTAL 0.3 mg/dL (0.2-1.0); BUN/CREATININE RATIO 10.3 (No establ ref range); CALCIUM 8.5 mg/dL (8.5-10.1); CREATININE 0.78 mg/dL (0.55-1.02); EST CRCL DRUG DOSING (CG) 88.86 mL/min; POTASSIUM,K 4.1 mmol/L (3.5-5.1); PROTEIN TOTAL,TP 5.3 g/dL (6.4-8.2)
[2024-09-13 17:10] LABS: A/G RATIO 0.56
[2024-09-14 15:47] LABS: HCV AB BY CIA INTERP High Pos (Negative); HEPC AB BY CIA INDEX >11.00 IV
[2024-09-14 16:40] VITALS: BP 117/72; PULSE 72
[2024-09-16 05:42] LABS: HCV QNT BY NAAT (IU/ML) Not Detected; HCV QNT BY NAAT (LOG IU/ML) Not Detected log IU/mL; HCV QNT BY NAAT INTERP Not Detected (Not Detected)
== END 2024-09-14 16:00 | disposition home or self-care (01) | DRG 787 ==
LOC: DL.OBCHECK 22:39 → DL.MS 09-12 00:15 → OBSVTOIN 09-12 01:59
PROVIDERS: ADMIT Student in an Organized Health Care Education/Training Program; ATTEND Student in an Organized Health Care Education/Training Program
PROC: 10D00Z1 Extraction of Products of Conception, Low, Open Approach (ICD-10-PCS; principal; 2024-09-12 01:27)
DX: O34.211 Maternal care for low transverse scar from previous cesarean delivery (principal); O98.42 Viral hepatitis complicating childbirth; B19.20 Unspecified viral hepatitis C without hepatic coma; D69.2 Other nonthrombocytopenic purpura; O99.72 Diseases of the skin and subcutaneous tissue complicating childbirth; R21 Rash and other nonspecific skin eruption; Z3A.39 39 weeks gestation of pregnancy; Z37.0 Single live birth
CPT/HCPCS: 01961; 36415; 51702; 59025; 59409; 70450; 71045; 76815; 80053; 80305-QW; 81003; 82140; 85027; 86592; 86762; 86803; 86850; 86900; 86901; 87081; 87210; 87340; 87389; 87491; 87522; 87591; 93971; A9270-GY; J0690; J1885; J2270